=== PATIENT | male | born 1950 ===

== ENCOUNTER 2018-01-21 11:33 | Inpatient (IN) ==
[2018-01-21] MEDS ORDERED: Lidocaine 1%/Epinephrine 1:100,000 Inj 30 ML Vial ONE (11:45)
[2018-01-21] MEDS ORDERED: fentaNYL Citrate Inj 100 MCG/2 ML Ampul ONE (11:45)
[2018-01-21 11:58] LABS: Baso # (Auto) 0.1 th/mm3 (0.0-0.2); Baso % (Auto) 0.9 % (0.0-2.0); Eos # (Auto) 0.3 th/mm3 (0.0-0.4); Eos % (Auto) 1.6 % (0.0-4.0); Hematocrit 38.7 % (39.0-51.0); Lymph # (Auto) 3.3 th/mm3 (1.0-4.8); Lymph % (Auto) 21.1 % (9.0-44.0); Mean Corpuscular HGB Conc 33.5 % (32.0-36.0); Mean Corpuscular Hemoglobin 32.1 pg (27.0-34.0); Mean Corpuscular Volume 95.9 fL (80.0-100.0); Mono # (Auto) 1.4 th/mm3 (0.0-0.9); Mono % (Auto) 8.7 % (0.0-8.0); Neut # (Auto) 10.5 th/mm3 (1.8-7.7); Neut % (Auto) 67.7 % (16.0-70.0); Platelet Count 223 th/mm3 (150-450); Red Blood Count 4.03 mil/mm3 (4.50-5.90); Red Cell Distribution Width 13.4 % (11.6-17.2); White Blood Count 15.6 th/mm3 (4.0-11.0)
[2018-01-21] MEDS ORDERED: Post-op Orders (for Pharmacy) OTHER ONE (12:06)
[2018-01-21] MEDS ORDERED: Naloxone Inj 0.4 MG/ML Vial IV.PUSH PRN (12:06)
[2018-01-21 12:08] LABS: Activated Partial Thrombo Time 22.9 sec (24.3-30.1); INR 1.1 Ratio; Prothrombin Time 11.2 sec (9.8-11.6)
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
[2018-01-21] MEDS ORDERED: Midazolam Inj 5 MG/ML 1 ML Vial ONE (12:31)
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
--- NOTE | 2018-01-21 12:34 | CT ---
EXAM DATE: 01/21/2018 12:24 PM EDT AGE/SEX: 89 years / Male INDICATIONS: [place] [facility] [place]IN[place] DATA: This is the patient's initial encounter. Patient reports that signs and symptoms have been present for 1 day and indicates a pain score of Nonresponsive. MEDICAL/SURGICAL HISTORY: Non-responsive. Non-responsive. RADIATION DOSE: 17.63 CTDI (mGy) COMPARISON: No prior exams available for comparison. TECHNIQUE: Multiple contiguous axial images were obtained through the chest during bolus infusion of 97 ml Omnipaque 350 (iohexol) nonionic water-soluble contrast as a single exam dose. Images were obtained in suspended respiration using multiple row detector helical technique. Using automated exp osure control and adjustment of the mA and/or kV according to patient size, radiation dose was kept a s low as reasonably achievable to obtain optimal diagnostic quality images. DICOM format image data is available electronically for review and comparison. FINDINGS: Moderate right hemopneumothorax despite thoracostomy tube placement. Patchy parenchymal lung contusio n on the right with areas of central air cyst formation. Left lung is satisfactorily aerated and rubia sly intact. No evidence of great vessel injury or mediastinal hematoma. Multiple moderately displaced right-sided rib fractures. Extensive right chest neck and upper abdomen subcutaneous emphysema. CONCLUSION: 1. Moderate persistent hemopneumothorax on the right despite thoracostomy tube placement.. 2. Patchy right lung parenchymal contusion. Electronically signed by: Uriah Wynn MD 01/21/2018 12:32 PM EDT
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
[2018-01-21] MEDS ORDERED: HYDROmorphone PF Inj 1 MG/ML Ampul IV.PUSH PRN (13:00)
[2018-01-21] MEDS: Midazolam 50 MG/50 ML Inj 50 MG/50 ML BAG IV.CONT PRN ×2 (13:30→18:11)
[2018-01-21 13:42] LABS: ABG PCO2 37 mmHg (38-42); ABG PO2 124 mmHg (61-120)
[2018-01-21] MEDS: Sod Chloride 0.9% Inj 1,000 ML IV.CONT SCH (14:15)
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
[2018-01-21] MEDS: Pantoprazole Inj 40 MG Vial IV.PUSH SCH (16:25)
[2018-01-21] MEDS: fentaNYL 10 mcg/mL Premix Drip 2,500 MCG/250 ML BAG IV.SIG PRN (16:27)
[2018-01-21] MEDS: ceFAZolin Inj 1,000 MG in Sodium Chlor 0.9% Inj 100 ML IV.SIG SCH ×2 (17:09→21:22)
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
[2018-01-21 17:53] LABS: Hematocrit 33.9 % (39.0-51.0); Hemoglobin 11.8 gm/dL (13.0-17.0); Mean Corpuscular HGB Conc 34.6 % (32.0-36.0); Mean Corpuscular Hemoglobin 32.1 pg (27.0-34.0); Mean Corpuscular Volume 92.6 fL (80.0-100.0); Mean Platelet Volume 8.5 fL (7.0-11.0); Platelet Count 144 th/mm3 (150-450); Red Blood Count 3.67 mil/mm3 (4.50-5.90); Red Cell Distribution Width 13.9 % (11.6-17.2); White Blood Count 18.9 th/mm3 (4.0-11.0)
--- NOTE | 2018-01-21 18:30 | MP ---
cc: Shivani Sommers MD DATE OF OPERATION: 01/21/2018 PREOPERATIVE DIAGNOSES: Right hemopneumothorax, serial rib fractures, contusion in the right chest in the right lung. POSTOPERATIVE DIAGNOSES: Right hemopneumothorax, serial rib fractures, contusion in the right chest in the right lung. PROCEDURE PERFORMED: Emergency right chest tube placement. SURGEON: Ashwini Sommers MD ANESTHESIA: 1% Xylocaine and sedation. ESTIMATED BLOOD LOSS: Minimal. DESCRIPTION OF PROCEDURE: The patient was prepped and draped in the usual fashion. The area was infiltrated with 1% Xylocaine. Incision made in the 5th and 6th rib in the midaxillary line, deepened down with a hemostat and chest entered. Immediately a large amount of old blood escaped 36-Bengali chest tube was placed in the posterior sulcus, sutured in place with 0 silk, connected to Pleur-Evac and the initially about 500 mL of old blood was obtained and then a trickle continues to about a liter over the next 4 hours. The patient tolerated the procedure well. MD IDALIA Lee/suzanne , 05:17 PM , 05:21 PM
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
[2018-01-21] MEDS: Senna/Docusate Sodium 8.6/50 MG Tablet PO SCH (21:22)
[2018-01-22] MEDS: Midazolam 50 MG/50 ML Inj 50 MG/50 ML BAG IV.CONT PRN (05:37)
[2018-01-22] MEDS: Sod Chloride 0.9% Inj 1,000 ML IV.CONT SCH ×3 (05:38→18:17)
[2018-01-22] MEDS: ceFAZolin Inj 1,000 MG in Sodium Chlor 0.9% Inj 100 ML IV.SIG SCH (05:57)
[2018-01-22 06:06] LABS: Baso % (Auto) 0.1 % (0.0-2.0); Eos % (Auto) 0.1 % (0.0-4.0); Hematocrit 33.1 % (39.0-51.0); Hemoglobin 11.4 gm/dL (13.0-17.0); Lymph # (Auto) 1.1 th/mm3 (1.0-4.8); Lymph % (Auto) 8.8 % (9.0-44.0); Mean Corpuscular HGB Conc 34.4 % (32.0-36.0); Mean Corpuscular Hemoglobin 32.1 pg (27.0-34.0); Mean Corpuscular Volume 93.6 fL (80.0-100.0); Mono # (Auto) 1.9 th/mm3 (0.0-0.9); Mono % (Auto) 15.9 % (0.0-8.0); Neut # (Auto) 9.2 th/mm3 (1.8-7.7); Neut % (Auto) 75.1 % (16.0-70.0); Platelet Count 129 th/mm3 (150-450); Red Blood Count 3.54 mil/mm3 (4.50-5.90); Red Cell Distribution Width 13.8 % (11.6-17.2); White Blood Count 12.2 th/mm3 (4.0-11.0)
[2018-01-22 06:33] LABS: Alanine Aminotransferase 35 U/L (12-78); Albumin 2.6 g/dL (3.4-5.0); Alkaline Phosphatase 43 U/L (45-117); Anion Gap 9 meq/L (5-15); Aspartate Aminotransferase 53 U/L (15-37); Blood Urea Nitrogen 23 mg/dL (7-18); Carbon Dioxide 23.3 meq/L (21.0-32.0); Chloride 112 meq/L (98-107); Glomerular Filtration Rate Greater Than 89 mL/min (>89); Glucose,Random 121 mg/dL (74-106); Potassium 3.8 meq/L (3.5-5.1); Sodium 144 meq/L (136-145); Total Protein 5.4 g/dL (6.4-8.2)
[2018-01-22 06:46] LABS: Calcium 7.2 mg/dL (8.5-10.1)
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
[2018-01-22 06:54] LABS: ABG Base Excess -2.5 mmol/L (-2-2); ABG PCO2 38 mmHg (38-42); ABG PO2 94 mmHg (61-120)
[2018-01-22] MEDS: Chlorhexidine 0.12% Oral Kit 15 ML UDC OROPHARYNG SCH ×2 (09:24→21:18)
[2018-01-22] MEDS: Methocarbamol 500 MG Tablet PO SCH ×3 (11:20→21:17)
[2018-01-22] MEDS: Senna/Docusate Sodium 8.6/50 MG Tablet PO SCH ×2 (11:34→20:52)
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
[2018-01-22 12:51] LABS: Calcium 7.4 mg/dL (8.5-10.1); Total Protein 5.3 g/dL (6.4-8.2)
[2018-01-22] MEDS ORDERED: Sod Chloride 0.9% Inj 1,000 ML IV.SIG ONE (13:18)
[2018-01-22] MEDS: Oral Hygiene Kit OROPHARYNG SCH ×2 (13:37→17:15)
[2018-01-22] MEDS: Pantoprazole Inj 40 MG Vial IV.PUSH SCH (13:43)
[2018-01-22] MEDS: Propofol 1000 mg/100 ml Inj 1,000 MG/100 ML BOTTLE IV.CONT PRN (13:45)
--- NOTE | 2018-01-22 15:05 | ECHRPT ---
Indication: SOB CONCLUSIONS The left ventricular systolic function is normal with an estimated ejection fraction in the range of 60-65%. Normal left ventricular size. Wall thickness is normal. No regional wall motion abnormalities are present. Trivial pulmonary valve regurgitation. BP: / HR: Rhythm: Sinus Technical Quality:Fair FINDINGS LEFT VENTRICLE The left ventricular systolic function is normal with an estimated ejection fraction in the range of 60-65%. Normal left ventricular size. Wall thickness is normal. No regional wall motion abnormalities are present. RIGHT VENTRICLE Normal right ventricular size and systolic function. LEFT ATRIUM The left atrial size is normal. RIGHT ATRIUM The right atrial size is normal. ATRIAL SEPTUM Normal atrial septal thickness without atrial level shunting by limited color doppler interrogation. AORTA The aortic root and proximal ascending aorta are normal in size on limited imaging. MITRAL VALVE Structurally normal mitral valve. No mitral valve stenosis or regurgitation. AORTIC VALVE Trileaflet aortic valve. No aortic valve stenosis or regurgitation. TRICUSPID VALVE Structurally normal tricuspid valve. No tricuspid valve stenosis or regurgitation. PULMONARY VALVE Trivial pulmonary valve regurgitation. VESSELS The inferior vena cava is normal in size. PERICARDIUM No pericardial effusion. Oswald Ruth MD (Electronically Signed) Final Date:22 January 2018 15:04
--- NOTE | 2018-01-22 20:11 | ECG ---
Date Performed: 01/21/2018 Time Performed: 13:34:32 PTAGE: 67 years EKG: Sinus tachycardia. Rightward axis Right bundle branch block SMALL INFERIOR Q-WAVES OF UNDET ERMINED SIGNIFICANCE Abnormal ECG NO PREVIOUS TRACING DOCTOR: Alverto Kern Interpretating Date/Time 01/22/2018 20:10:21
[2018-01-23] MEDS: Oral Hygiene Kit OROPHARYNG SCH ×4 (01:11→16:51)
[2018-01-23] MEDS: Propofol 1000 mg/100 ml Inj 1,000 MG/100 ML BOTTLE IV.CONT PRN ×4 (02:06→17:36)
[2018-01-23] MEDS: Methocarbamol 500 MG Tablet PO SCH ×4 (03:52→22:20)
[2018-01-23] MEDS: fentaNYL 10 mcg/mL Premix Drip 2,500 MCG/250 ML BAG IV.SIG PRN (03:53)
[2018-01-23] MEDS: Sod Chloride 0.9% Inj 1,000 ML IV.CONT SCH ×3 (03:54→18:30)
[2018-01-23 05:56] LABS: ABG Base Excess 0.9 mmol/L (-2-2); ABG PCO2 44 mmHg (38-42); ABG PO2 84 mmHg (61-120)
[2018-01-23 06:02] LABS: Baso % (Auto) 0.1 % (0.0-2.0); Eos # (Auto) 0.1 th/mm3 (0.0-0.4); Eos % (Auto) 0.3 % (0.0-4.0); Hematocrit 31.3 % (39.0-51.0); Hemoglobin 10.6 gm/dL (13.0-17.0); Lymph # (Auto) 1.6 th/mm3 (1.0-4.8); Lymph % (Auto) 9.9 % (9.0-44.0); Mean Corpuscular HGB Conc 33.8 % (32.0-36.0); Mean Corpuscular Hemoglobin 32.3 pg (27.0-34.0); Mean Corpuscular Volume 95.5 fL (80.0-100.0); Mean Platelet Volume 9.6 fL (7.0-11.0); Mono # (Auto) 2.3 th/mm3 (0.0-0.9); Mono % (Auto) 14.4 % (0.0-8.0); Neut % (Auto) 75.3 % (16.0-70.0); Platelet Count 116 th/mm3 (150-450); Red Blood Count 3.28 mil/mm3 (4.50-5.90); Red Cell Distribution Width 14.2 % (11.6-17.2)
[2018-01-23 06:20] LABS: Calcium 7.5 mg/dL (8.5-10.1); Carbon Dioxide 26.3 meq/L (21.0-32.0); Potassium 3.9 meq/L (3.5-5.1)
[2018-01-23] MEDS: Senna/Docusate Sodium 8.6/50 MG Tablet PO SCH ×2 (08:53→20:16)
[2018-01-23] MEDS: Chlorhexidine 0.12% Oral Kit 15 ML UDC OROPHARYNG SCH ×2 (08:53→20:14)
[2018-01-23 08:54] LABS: Lymphocytes 6 % (9-44); Monocytes 10 % (0-8)
[2018-01-23 08:55] LABS: Platelet Morphology Normal (Normal); RBC Morphology Normal (Normal)
--- NOTE | 2018-01-23 10:05 | XR ---
EXAM DATE: 01/23/2018 9:59 AM EDT AGE/SEX: 67 years / Male INDICATIONS: Rib fracture CLINICAL DATA: This is the patient's subsequent encounter. Patient reports that signs and symptoms h ave been present for 2 days and indicates a pain score of Nonresponsive. MEDICAL/SURGICAL HISTORY: Non-responsive. Non-responsive. COMPARISON: [facility] [place], CHEST 1V SINGLE AP, 01/22/2018. [facility] [place], CT CHEST W CONTRAST, 01/21/2018. . FINDINGS: 2 AP views of the chest demonstrate a normal-sized cardiac silhouette. Endotracheal tube and nasogast vance tube remain present. EKG lines overlie the patient. There is a right subclavian central line pres ent with distal tip in the SVC. Large bore right chest tube remains present and no pneumothorax is vi sualized. There are stable bibasilar pleural-parenchymal opacities, right larger than left. Right sup raclavicular and right chest wall subcutaneous emphysema remains visualized and there are multiple di splaced right rib fractures. CONCLUSION: 1. Stable chest x-ray with its stable bibasilar opacities, right greater than left. These likely rep resent pleural effusions with associated volume loss and/or airspace consolidation. 2. Right chest tube remains present without a pneumothorax visualized. 3. Multiple displaced right rib fractures remain visualized and there is stable right chest wall and supraclavicular region subcutaneous emphysema. Electronically signed by: Uriah Gale MD 01/23/2018 10:04 AM EDT
[2018-01-23] MEDS: Enoxaparin Inj 30 MG/0.3 ML Syringe SQ SCH ×2 (11:05→20:14)
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
[2018-01-23] MEDS: Pantoprazole Inj 40 MG Vial IV.PUSH SCH (12:20)
[2018-01-24] MEDS: Propofol 1000 mg/100 ml Inj 1,000 MG/100 ML BOTTLE IV.CONT PRN ×4 (01:25→21:11)
[2018-01-24] MEDS: Oral Hygiene Kit OROPHARYNG SCH ×4 (02:42→15:24)
[2018-01-24] MEDS: Sod Chloride 0.9% Inj 1,000 ML IV.CONT SCH ×2 (04:03→13:02)
[2018-01-24] MEDS: Methocarbamol 500 MG Tablet PO SCH ×4 (04:26→21:11)
[2018-01-24] MEDS: fentaNYL 10 mcg/mL Premix Drip 2,500 MCG/250 ML BAG IV.SIG PRN (05:17)
[2018-01-24 06:01] LABS: Hemoglobin 8.8 gm/dL (13.0-17.0); Mean Corpuscular Hemoglobin 32.6 pg (27.0-34.0); Mean Corpuscular Volume 95.8 fL (80.0-100.0); Mean Platelet Volume 9.6 fL (7.0-11.0); Platelet Count 99 th/mm3 (150-450); Red Blood Count 2.72 mil/mm3 (4.50-5.90); Red Cell Distribution Width 13.8 % (11.6-17.2); White Blood Count 11.4 th/mm3 (4.0-11.0)
[2018-01-24 06:20] LABS: Anion Gap 8 meq/L (5-15); Blood Urea Nitrogen 25 mg/dL (7-18); Calcium 7.7 mg/dL (8.5-10.1); Carbon Dioxide 26.7 meq/L (21.0-32.0); Chloride 110 meq/L (98-107); Glomerular Filtration Rate Greater Than 89 mL/min (>89); Glucose,Random 125 mg/dL (74-106); Potassium 3.7 meq/L (3.5-5.1); Sodium 145 meq/L (136-145)
[2018-01-24 08:19] LABS: Eosinophils 2 % (0-4); Lymphocytes 12 % (9-44); Monocytes 11 % (0-8)
[2018-01-24 08:20] LABS: Platelet Morphology Normal (Normal); RBC Morphology Normal (Normal)
[2018-01-24] MEDS: Chlorhexidine 0.12% Oral Kit 15 ML UDC OROPHARYNG SCH ×2 (08:21→20:04)
[2018-01-24] MEDS: Senna/Docusate Sodium 8.6/50 MG Tablet PO SCH ×2 (08:22→20:04)
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
[2018-01-24] MEDS: Enoxaparin Inj 40 MG/0.4 ML Syringe SQ SCH (11:41)
[2018-01-24] MEDS: Pantoprazole Inj 40 MG Vial IV.PUSH SCH (12:35)
[2018-01-24] MEDS: Enoxaparin Inj 30 MG/0.3 ML Syringe SQ SCH (12:56)
[2018-01-25] MEDS: Oral Hygiene Kit OROPHARYNG SCH ×4 (01:40→17:05)
[2018-01-25] MEDS: fentaNYL 10 mcg/mL Premix Drip 2,500 MCG/250 ML BAG IV.SIG PRN (02:23)
[2018-01-25] MEDS: Propofol 1000 mg/100 ml Inj 1,000 MG/100 ML BOTTLE IV.CONT PRN ×2 (04:01→11:05)
[2018-01-25] MEDS: Methocarbamol 500 MG Tablet PO SCH ×4 (04:27→21:45)
[2018-01-25] MEDS: Sod Chloride 0.9% Inj 1,000 ML IV.CONT SCH (04:31)
[2018-01-25 06:21] LABS: ABG Base Excess 1.5 mmol/L (-2-2); ABG PCO2 39 mmHg (38-42); ABG PO2 88 mmHg (61-120)
[2018-01-25 06:48] LABS: Baso % (Auto) 0.3 % (0.0-2.0); Eos # (Auto) 0.2 th/mm3 (0.0-0.4); Eos % (Auto) 1.5 % (0.0-4.0); Hematocrit 25.3 % (39.0-51.0); Hemoglobin 8.5 gm/dL (13.0-17.0); Lymph # (Auto) 1.7 th/mm3 (1.0-4.8); Lymph % (Auto) 14.9 % (9.0-44.0); Mean Corpuscular HGB Conc 33.7 % (32.0-36.0); Mean Corpuscular Hemoglobin 32.2 pg (27.0-34.0); Mean Corpuscular Volume 95.5 fL (80.0-100.0); Mean Platelet Volume 9.5 fL (7.0-11.0); Mono # (Auto) 1.8 th/mm3 (0.0-0.9); Mono % (Auto) 15.1 % (0.0-8.0); Neut % (Auto) 68.2 % (16.0-70.0); Platelet Count 135 th/mm3 (150-450); Red Blood Count 2.65 mil/mm3 (4.50-5.90); Red Cell Distribution Width 13.8 % (11.6-17.2); White Blood Count 11.7 th/mm3 (4.0-11.0)
[2018-01-25 07:06] LABS: Anion Gap 7 meq/L (5-15); Blood Urea Nitrogen 24 mg/dL (7-18); Calcium 7.6 mg/dL (8.5-10.1); Carbon Dioxide 27.6 meq/L (21.0-32.0); Chloride 111 meq/L (98-107); Glomerular Filtration Rate Greater Than 89 mL/min (>89); Glucose,Random 87 mg/dL (74-106); Potassium 3.6 meq/L (3.5-5.1); Sodium 146 meq/L (136-145)
[2018-01-25] MEDS: Chlorhexidine 0.12% Oral Kit 15 ML UDC OROPHARYNG SCH ×2 (08:01→21:46)
[2018-01-25] MEDS: Senna/Docusate Sodium 8.6/50 MG Tablet PO SCH ×2 (08:01→21:45)
[2018-01-25] MEDS: Enoxaparin Inj 40 MG/0.4 ML Syringe SQ SCH (09:17)
--- NOTE | 2018-01-25 10:02 | CT ---
EXAM DATE: 01/25/2018 9:49 AM EDT AGE/SEX: 67 years / Male INDICATIONS: Hemothorax. CLINICAL DATA: This is the patient's subsequent encounter. Patient reports that signs and symptoms h ave been present for 4 - 6 days and indicates a pain score of Nonresponsive. MEDICAL/SURGICAL HISTORY: Hypertension. None. RADIATION DOSE: 18.87 CTDI (mGy) COMPARISON: [facility] [place], CT CHEST W CONTRAST, 01/21/2018. . TECHNIQUE: Multiple contiguous axial images were obtained through the chest without contrast. Image s were obtained in suspended respiration using multiple row detector helical technique. Using automa maricruz exposure control and adjustment of the mA and/or kV according to patient size, radiation dose was kept as low as reasonably achievable to obtain optimal diagnostic quality images. DICOM format imag e data is available electronically for review and comparison. FINDINGS: A right chest thoracostomy tube remains in place. There is bilateral posterior basilar atelectasis an d/or contusion. Small volume of residual partly loculated effusion on the right and minimal free effu masha on the left. Endotracheal tube, nasogastric tube and right subclavian central line are present in good position. T here is no evidence of mediastinal mass or hematoma. Multiple right chest skeletal injuries are again noted. Moderate subcutaneous emphysema is present in the right lateral chest wall and the right neck. CONCLUSION: 1. Interval resolution of right pneumothorax with some residual hemothorax. 2. Posterior lung base atelectasis and/or contusion bilaterally Electronically signed by: Uriah Wynn MD 01/25/2018 10:00 AM EDT
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
[2018-01-25] MEDS: Pantoprazole Inj 40 MG Vial IV.PUSH SCH (14:25)
[2018-01-26] MEDS: Propofol 1000 mg/100 ml Inj 1,000 MG/100 ML BOTTLE IV.CONT PRN (00:06)
[2018-01-26] MEDS: Oral Hygiene Kit OROPHARYNG SCH ×2 (00:06→04:54)
[2018-01-26] MEDS: fentaNYL 10 mcg/mL Premix Drip 2,500 MCG/250 ML BAG IV.SIG PRN (00:07)
[2018-01-26] MEDS: Chlorhexidine Gluconate 2% 1 Pack (2 Cloths) TOPICAL SCH (02:00)
[2018-01-26] MEDS ORDERED: Chlorhexidine Gluconate 2% 1 Pack (2 Cloths) TOPICAL PRN (04:00)
[2018-01-26 04:28] LABS: Baso # (Auto) 0.1 th/mm3 (0.0-0.2); Baso % (Auto) 0.4 % (0.0-2.0); Eos # (Auto) 0.2 th/mm3 (0.0-0.4); Eos % (Auto) 1.6 % (0.0-4.0); Hematocrit 25.2 % (39.0-51.0); Hemoglobin 8.8 gm/dL (13.0-17.0); Lymph # (Auto) 1.8 th/mm3 (1.0-4.8); Lymph % (Auto) 14.3 % (9.0-44.0); Mean Corpuscular HGB Conc 34.9 % (32.0-36.0); Mean Corpuscular Hemoglobin 32.7 pg (27.0-34.0); Mean Corpuscular Volume 93.9 fL (80.0-100.0); Mean Platelet Volume 8.6 fL (7.0-11.0); Mono # (Auto) 2.2 th/mm3 (0.0-0.9); Mono % (Auto) 17.5 % (0.0-8.0); Neut # (Auto) 8.2 th/mm3 (1.8-7.7); Neut % (Auto) 66.2 % (16.0-70.0); Platelet Count 177 th/mm3 (150-450); Red Blood Count 2.69 mil/mm3 (4.50-5.90); Red Cell Distribution Width 13.4 % (11.6-17.2); White Blood Count 12.4 th/mm3 (4.0-11.0)
[2018-01-26 04:50] LABS: Anion Gap 5 meq/L (5-15); Blood Urea Nitrogen 24 mg/dL (7-18); Calcium 7.6 mg/dL (8.5-10.1); Carbon Dioxide 29.4 meq/L (21.0-32.0); Chloride 111 meq/L (98-107); Glomerular Filtration Rate Greater Than 89 mL/min (>89); Glucose,Random 142 mg/dL (74-106); Potassium 3.4 meq/L (3.5-5.1); Sodium 145 meq/L (136-145)
[2018-01-26] MEDS: Methocarbamol 500 MG Tablet PO SCH ×4 (04:53→21:06)
[2018-01-26] MEDS: Senna/Docusate Sodium 8.6/50 MG Tablet PO SCH ×3 (08:25→21:06)
[2018-01-26] MEDS: Chlorhexidine 0.12% Oral Kit 15 ML UDC OROPHARYNG SCH (08:25)
[2018-01-26 09:38] LABS: ABG Base Excess 3.6 mmol/L (-2-2); ABG PCO2 50 mmHg (38-42); ABG PO2 74 mmHg (61-120)
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
[2018-01-26] MEDS: Enoxaparin Inj 40 MG/0.4 ML Syringe SQ SCH (10:25)
[2018-01-26] MEDS: Morphine Inj 4 MG/ML Vial IV.PUSH PRN ×2 (12:18→18:31)
[2018-01-26] MEDS: Pantoprazole Inj 40 MG Vial IV.PUSH SCH (12:18)
[2018-01-26] MEDS ORDERED: Sod Chloride 0.9% Inj 1,000 ML IV.CONT SCH (16:06)
[2018-01-26] MEDS ORDERED: Potassium Chlor 20 mEq Premix 20 MEQ/100 ML PIGGYBACK IV.SIG SCH (17:00)
[2018-01-26] MEDS: Potassium Chlor 10 mEq Premix 10 MEQ/100 ML PIGGYBACK IV.SIG SCH ×4 (17:31→20:33)
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
[2018-01-27] MEDS: Morphine Inj 4 MG/ML Vial IV.PUSH PRN ×2 (00:30→09:37)
[2018-01-27 04:18] LABS: Baso # (Auto) 0.1 th/mm3 (0.0-0.2); Baso % (Auto) 0.5 % (0.0-2.0); Eos # (Auto) 0.2 th/mm3 (0.0-0.4); Eos % (Auto) 1.2 % (0.0-4.0); Hematocrit 27.9 % (39.0-51.0); Hemoglobin 9.6 gm/dL (13.0-17.0); Lymph # (Auto) 1.5 th/mm3 (1.0-4.8); Lymph % (Auto) 10.1 % (9.0-44.0); Mean Corpuscular HGB Conc 34.5 % (32.0-36.0); Mean Corpuscular Hemoglobin 32.5 pg (27.0-34.0); Mean Corpuscular Volume 94.1 fL (80.0-100.0); Mean Platelet Volume 8.8 fL (7.0-11.0); Mono # (Auto) 2.8 th/mm3 (0.0-0.9); Mono % (Auto) 18.9 % (0.0-8.0); Neut # (Auto) 10.3 th/mm3 (1.8-7.7); Neut % (Auto) 69.3 % (16.0-70.0); Platelet Count 216 th/mm3 (150-450); Red Blood Count 2.96 mil/mm3 (4.50-5.90); Red Cell Distribution Width 13.6 % (11.6-17.2); White Blood Count 14.9 th/mm3 (4.0-11.0)
[2018-01-27 04:37] LABS: Anion Gap 8 meq/L (5-15); Blood Urea Nitrogen 24 mg/dL (7-18); Carbon Dioxide 30.4 meq/L (21.0-32.0); Chloride 108 meq/L (98-107); Glomerular Filtration Rate Greater Than 89 mL/min (>89); Glucose,Random 102 mg/dL (74-106); Sodium 146 meq/L (136-145)
[2018-01-27] MEDS: Chlorhexidine Gluconate 2% 1 Pack (2 Cloths) TOPICAL SCH (04:40)
[2018-01-27] MEDS: Methocarbamol 500 MG Tablet PO SCH ×4 (04:40→22:11)
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
[2018-01-27 05:07] LABS: Platelet Estimate Normal (Normal); Platelet Morphology Normal (Normal); RBC Morphology Normal (Normal)
[2018-01-27] MEDS: Senna/Docusate Sodium 8.6/50 MG Tablet PO SCH ×2 (09:30→20:43)
[2018-01-27] MEDS: buPROPion 150 MG 12 HR Tablet PO SCH (09:30)
[2018-01-27] MEDS: Enoxaparin Inj 40 MG/0.4 ML Syringe SQ SCH (09:30)
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
[2018-01-28] MEDS: Chlorhexidine Gluconate 2% 1 Pack (2 Cloths) TOPICAL SCH (04:20)
[2018-01-28] MEDS: Methocarbamol 500 MG Tablet PO SCH ×4 (04:40→21:11)
--- NOTE | 2018-01-28 06:44 | XR ---
EXAM DATE: 01/28/2018 6:32 AM EDT AGE/SEX: 67 years / Male INDICATIONS: Shortness of breath. Evaluate for pneumothorax. CLINICAL DATA: This is the patient's subsequent encounter. Patient reports that signs and symptoms h ave been present for 1 week and indicates a pain score of 0/10. MEDICAL/SURGICAL HISTORY: Hypertension. None. [place] [facility] [place]. . FINDINGS: Multiple right-sided rib fractures. Right thoracostomy tube is unchanged in position. No pneumothorax . Bibasilar airspace disease with associated effusions, right greater than left. Heart size is normal . Bridging lateral osteophytes at multiple dorsal levels. There appear to be spurs on both humeral he ads CONCLUSION: 1. Extensive right-sided rib fractures. 2. Stable position of right thoracostomy tube. No pneumothorax. 3. Bibasilar airspace disease with probable associated effusions, right greater than left. 4. No significant change from prior. Electronically signed by: Mike Brand MD 01/28/2018 6:43 AM EDT
[2018-01-28] MEDS ORDERED: Bisacodyl 10 MG Supp RECTAL ONE (09:00)
[2018-01-28 09:22] LABS: ABG Base Excess 8.5 mmol/L (-2-2); ABG PCO2 50 mmHg (38-42); ABG PO2 70 mmHg (61-120)
[2018-01-28] MEDS: Enoxaparin Inj 40 MG/0.4 ML Syringe SQ SCH (10:04)
[2018-01-28] MEDS: buPROPion 150 MG 12 HR Tablet PO SCH (10:09)
[2018-01-28] MEDS: Senna/Docusate Sodium 8.6/50 MG Tablet PO SCH ×2 (10:09→20:17)
[2018-01-28] MEDS: Sod Chloride 0.9% Inj 1,000 ML IV.SIG SCH ×2 (18:00→19:05)
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
[2018-01-29] MEDS: Methocarbamol 500 MG Tablet PO SCH ×4 (03:22→21:40)
[2018-01-29] MEDS: Chlorhexidine Gluconate 2% 1 Pack (2 Cloths) TOPICAL SCH (03:23)
[2018-01-29 05:45] LABS: Anion Gap 6 meq/L (5-15); Blood Urea Nitrogen 24 mg/dL (7-18); Calcium 8.3 mg/dL (8.5-10.1); Carbon Dioxide 32.4 meq/L (21.0-32.0); Chloride 109 meq/L (98-107); Glomerular Filtration Rate Greater Than 89 mL/min (>89); Glucose,Random 106 mg/dL (74-106); Potassium 3.9 meq/L (3.5-5.1); Sodium 147 meq/L (136-145)
[2018-01-29 06:00] LABS: Baso # (Auto) 0.1 th/mm3 (0.0-0.2); Baso % (Auto) 0.6 % (0.0-2.0); Eos # (Auto) 0.1 th/mm3 (0.0-0.4); Eos % (Auto) 0.9 % (0.0-4.0); Hematocrit 29.1 % (39.0-51.0); Hemoglobin 9.8 gm/dL (13.0-17.0); Mean Corpuscular HGB Conc 33.6 % (32.0-36.0); Mean Corpuscular Hemoglobin 32.6 pg (27.0-34.0); Mean Corpuscular Volume 97.2 fL (80.0-100.0); Mean Platelet Volume 8.6 fL (7.0-11.0); Mono # (Auto) 2.1 th/mm3 (0.0-0.9); Mono % (Auto) 12.3 % (0.0-8.0); Neut # (Auto) 12.6 th/mm3 (1.8-7.7); Neut % (Auto) 74.2 % (16.0-70.0); Platelet Count 288 th/mm3 (150-450)
[2018-01-29] MEDS: Senna/Docusate Sodium 8.6/50 MG Tablet PO SCH ×2 (08:27→21:40)
[2018-01-29] MEDS: buPROPion 150 MG 12 HR Tablet PO SCH (08:27)
[2018-01-29] MEDS: Sod Chloride 0.9% Inj 1,000 ML IV.SIG SCH ×2 (09:27→20:07)
[2018-01-29] MEDS: Enoxaparin Inj 40 MG/0.4 ML Syringe SQ SCH (11:14)
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
[2018-01-29 19:03] LABS: ABG Base Excess 9.4 mmol/L (-2-2); ABG PCO2 56 mmHg (38-42); ABG PO2 88 mmHg (61-120)
[2018-01-30] MEDS: Methocarbamol 500 MG Tablet PO SCH ×4 (04:19→21:37)
[2018-01-30] MEDS: Sod Chloride 0.9% Inj 1,000 ML IV.SIG SCH ×3 (04:20→21:38)
[2018-01-30] MEDS: Chlorhexidine Gluconate 2% 1 Pack (2 Cloths) TOPICAL SCH (04:20)
[2018-01-30] MEDS: Enoxaparin Inj 40 MG/0.4 ML Syringe SQ SCH (09:32)
[2018-01-30] MEDS: Senna/Docusate Sodium 8.6/50 MG Tablet PO SCH ×2 (09:32→21:37)
[2018-01-30] MEDS: buPROPion 150 MG 12 HR Tablet PO SCH (09:32)
[2018-01-30 10:35] LABS: Baso # (Auto) 0.1 th/mm3 (0.0-0.2); Baso % (Auto) 0.4 % (0.0-2.0); Eos # (Auto) 0.1 th/mm3 (0.0-0.4); Eos % (Auto) 0.7 % (0.0-4.0); Hematocrit 29.7 % (39.0-51.0); Hemoglobin 9.8 gm/dL (13.0-17.0); Lymph # (Auto) 1.8 th/mm3 (1.0-4.8); Lymph % (Auto) 9.3 % (9.0-44.0); Mean Corpuscular HGB Conc 32.9 % (32.0-36.0); Mean Corpuscular Hemoglobin 32.3 pg (27.0-34.0); Mean Platelet Volume 8.1 fL (7.0-11.0); Mono # (Auto) 1.9 th/mm3 (0.0-0.9); Mono % (Auto) 9.8 % (0.0-8.0); Neut # (Auto) 15.1 th/mm3 (1.8-7.7); Neut % (Auto) 79.8 % (16.0-70.0); Platelet Count 350 th/mm3 (150-450); Red Blood Count 3.03 mil/mm3 (4.50-5.90); Red Cell Distribution Width 14.3 % (11.6-17.2); White Blood Count 18.9 th/mm3 (4.0-11.0)
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
[2018-01-30 11:04] LABS: Anion Gap 5 meq/L (5-15); Blood Urea Nitrogen 23 mg/dL (7-18); Calcium 8.1 mg/dL (8.5-10.1); Carbon Dioxide 36.7 meq/L (21.0-32.0); Chloride 108 meq/L (98-107); Glomerular Filtration Rate Greater Than 89 mL/min (>89); Glucose,Random 93 mg/dL (74-106); Potassium 3.7 meq/L (3.5-5.1); Sodium 150 meq/L (136-145)
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
[2018-01-31] MEDS: Methocarbamol 500 MG Tablet PO SCH ×4 (03:44→22:07)
[2018-01-31 04:35] LABS: Baso # (Auto) 0.1 th/mm3 (0.0-0.2); Baso % (Auto) 0.5 % (0.0-2.0); Eos # (Auto) 0.3 th/mm3 (0.0-0.4); Eos % (Auto) 1.3 % (0.0-4.0); Hematocrit 29.4 % (39.0-51.0); Hemoglobin 9.7 gm/dL (13.0-17.0); Lymph # (Auto) 1.5 th/mm3 (1.0-4.8); Lymph % (Auto) 7.7 % (9.0-44.0); Mean Corpuscular HGB Conc 33.1 % (32.0-36.0); Mean Corpuscular Hemoglobin 32.2 pg (27.0-34.0); Mean Corpuscular Volume 97.3 fL (80.0-100.0); Mean Platelet Volume 8.2 fL (7.0-11.0); Mono % (Auto) 10.5 % (0.0-8.0); Neut # (Auto) 15.1 th/mm3 (1.8-7.7); Platelet Count 366 th/mm3 (150-450); Red Blood Count 3.02 mil/mm3 (4.50-5.90); Red Cell Distribution Width 14.1 % (11.6-17.2); White Blood Count 18.9 th/mm3 (4.0-11.0)
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
[2018-01-31 05:01] LABS: Albumin 1.9 g/dL (3.4-5.0); Anion Gap 6 meq/L (5-15); Aspartate Aminotransferase 35 U/L (15-37); Blood Urea Nitrogen 23 mg/dL (7-18); Calcium 7.9 mg/dL (8.5-10.1); Carbon Dioxide 36.2 meq/L (21.0-32.0); Chloride 105 meq/L (98-107); Glomerular Filtration Rate Greater Than 89 mL/min (>89); Glucose,Random 115 mg/dL (74-106); Potassium 3.4 meq/L (3.5-5.1); Sodium 147 meq/L (136-145)
[2018-01-31 05:05] LABS: Alanine Aminotransferase 33 U/L (12-78); Alkaline Phosphatase 95 U/L (45-117)
[2018-01-31] MEDS: Sod Chloride 0.9% Inj 1,000 ML IV.SIG SCH ×3 (06:20→18:16)
[2018-01-31 06:33] LABS: ABG Base Excess 11.7 mmol/L (-2-2); ABG PCO2 60 mmHg (38-42); ABG PO2 71 mmHg (61-120)
[2018-01-31] MEDS: buPROPion 150 MG 12 HR Tablet PO SCH (08:28)
[2018-01-31] MEDS: Senna/Docusate Sodium 8.6/50 MG Tablet PO SCH ×2 (08:28→21:45)
[2018-01-31] MEDS: Enoxaparin Inj 40 MG/0.4 ML Syringe SQ SCH (09:07)
[2018-01-31] MEDS ORDERED: Potassium Chlor 40 mEq Premix 40 MEQ/100 ML PIGGYBACK IV.SIG PRN ×2 (09:24)
[2018-01-31] MEDS ORDERED: Potassium Phosphate Inj 30 MMOL in Sodium Chlor 0.9% Inj 250 ML IV.SIG PRN (09:24)
[2018-01-31] MEDS ORDERED: Potassium Chloride 25 MEQ Effervescent Tablet PO PRN (09:24)
[2018-01-31] MEDS ORDERED: Magnesium Oxide 400 MG Tablet PO PRN (09:24)
[2018-01-31] MEDS ORDERED: Potassium Chlor 20 mEq Premix 20 MEQ/100 ML PIGGYBACK IV.SIG PRN ×2 (09:24)
[2018-01-31] MEDS ORDERED: Magnesium Sulfate Inj 2 GM in Sodium Chlor 0.9% Inj 96 ML IV.SIG PRN (09:24)
[2018-01-31] MEDS ORDERED: Sodium Phosphate Inj 30 MMOL in Sodium Chlor 0.9% Inj 250 ML IV.SIG PRN (09:24)
[2018-01-31] MEDS ORDERED: Magnesium Sulfate Inj 4 GM in Sodium Chlor 0.9% Inj 92 ML IV.SIG PRN (09:24)
[2018-01-31] MEDS ORDERED: Potassium Phosphate 500 MG Soluble Tablet PO PRN ×2 (09:24)
[2018-01-31] MEDS ORDERED: Lidocaine PF 1% Inj 5 ML Syringe INFILTRATN ONE (10:59)
[2018-01-31] MEDS ORDERED: Succinylcholine Inj 100 MG/5 ML Syringe IV.PUSH ONE (10:59)
[2018-01-31] MEDS ORDERED: fentaNYL Citrate Inj 100 MCG/2 ML Ampul ONE (11:33)
--- NOTE | 2018-01-31 12:18 | P.DIET ---
Nutritional Evaluation Type of nutrition evaluation: follow-up Nutrition consult regarding: Tube Feeding Objective - Diagnosis Trauma Alert - Objective % IBW: 136 (XYQ=402#) Body Weight Used for Calculations: IBW (178#/80.9 kg) Energy Needs - Lower Range (kCal/kg): 25 Energy Needs - Upper Range (kCal/kg): 30 Lower Limit kCal/kg (kCals): 2,023 Upper Limit kCal/kg (kCals): 2,428 Lower Limit Protein Factor (Grams per Kg): 1.0 Upper Limit Protein Factor (Grams per Kg): 1.5 Lower Protein Needs (Protein): 81 Upper Protein Needs (Protein): 122 Dietitian Reviewed in Medical Record: Current diet, Curent medications, Intake & Output, Labs, Medical history, Tube feeding Diet Order: NPO (for procedure) Assessment Assessment: Pt was extubated 01/26 and diet was advanced per ST recommendations. Adequate po intake has not yet been established. He is currently npo for bronchoscopy. RD will monitor diet advance and assess for the need of supplements. Labs, wts and clinical course reviewed. CBW 110.1 kg. Recommendations: Advance diet per ST when able RD following Dietitian to Monitor: Lab values, Intake & Output, Weight change, PO Intake, Diet advancement, Swallow recommendations, Medical course
--- NOTE | 2018-01-31 12:37 | XR ---
EXAM DATE: 01/31/2018 12:18 PM EDT AGE/SEX: 67 years / Male INDICATIONS: Post Bronchoscopy. Short of breath CLINICAL DATA: This is the patient's initial encounter. Patient reports that signs and symptoms have been present for 1 day and indicates a pain score of 0/10. MEDICAL/SURGICAL HISTORY: Hypertension. None. COMPARISON: [facility] – [place], CHEST 1V SINGLE AP, 01/31/2018. . FINDINGS: Upright expiratory frontal view of the chest demonstrates a normal size cardiac silhouette. EKG lines overlie the patient. Large bore chest tube overlies the right mid hemithorax. There is a small right apical pneumothorax with pleural line seen superiorly in the right hemithorax. There are no signs of tension. Stable moderate size right and small left basilar pleural-parenchymal opacity remains prese nt. There are multiple displaced right rib fractures. CONCLUSION: 1. Small right apical pneumothorax is present in this patient with right chest tube in place. 2. Stable bibasilar pleural-parenchymal opacities, right greater than left. These likely represent s mall pleural effusions with associated volume loss and/or airspace consolidation. 3. Stable appearance of the right rib fractures. Electronically signed by: Uriah Gale MD 01/31/2018 12:35 PM EDT
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
[2018-02-01] MEDS: Methocarbamol 500 MG Tablet PO SCH ×3 (03:46→15:51)
[2018-02-01 04:17] LABS: Baso % (Auto) 0.1 % (0.0-2.0); Eos # (Auto) 0.2 th/mm3 (0.0-0.4); Eos % (Auto) 0.6 % (0.0-4.0); Hematocrit 29.3 % (39.0-51.0); Hemoglobin 9.8 gm/dL (13.0-17.0); Lymph # (Auto) 1.7 th/mm3 (1.0-4.8); Lymph % (Auto) 6.3 % (9.0-44.0); Mean Corpuscular HGB Conc 33.4 % (32.0-36.0); Mean Corpuscular Hemoglobin 32.2 pg (27.0-34.0); Mean Corpuscular Volume 96.4 fL (80.0-100.0); Mean Platelet Volume 8.2 fL (7.0-11.0); Mono # (Auto) 2.8 th/mm3 (0.0-0.9); Mono % (Auto) 10.2 % (0.0-8.0); Neut # (Auto) 22.9 th/mm3 (1.8-7.7); Neut % (Auto) 82.8 % (16.0-70.0); Platelet Count 376 th/mm3 (150-450); Red Blood Count 3.04 mil/mm3 (4.50-5.90); Red Cell Distribution Width 13.9 % (11.6-17.2); White Blood Count 27.6 th/mm3 (4.0-11.0)
--- NOTE | 2018-02-01 04:19 | XR ---
EXAM DATE: 02/01/2018 4:09 AM EDT AGE/SEX: 67 years / Male INDICATIONS: Trauma. CLINICAL DATA: This is the patient's subsequent encounter. Patient reports that signs and symptoms h ave been present for 2 days and indicates a pain score of Nonresponsive. MEDICAL/SURGICAL HISTORY: Hypertension. None. COMPARISON: [facility] [place], CHEST 1V SINGLE AP, 01/31/2018. [facility] [place], CHEST 1V SINGLE AP, 01/31/2018. . FINDINGS: Right rib fractures with a small to moderate effusion and basilar consolidation again noted, not sign ificantly changed. Right chest tube remains in place. No pneumothorax. Mild left base consolidation and small effusion not significantly changed. Heart size stable, within normal limits. CONCLUSION: 1. Bibasilar consolidation and small effusions persist, not significantly changed. 2. Right chest tube remains in place. No pneumothorax. 3. Right rib fractures are again noted. Electronically signed by: Uriah Manzanares MD 02/01/2018 4:18 AM EDT
[2018-02-01 04:46] LABS: Albumin 1.8 g/dL (3.4-5.0); Anion Gap 7 meq/L (5-15); Aspartate Aminotransferase 24 U/L (15-37); Blood Urea Nitrogen 18 mg/dL (7-18); Calcium 7.8 mg/dL (8.5-10.1); Carbon Dioxide 35.4 meq/L (21.0-32.0); Chloride 105 meq/L (98-107); Glomerular Filtration Rate Greater Than 89 mL/min (>89); Glucose,Random 112 mg/dL (74-106); Potassium 3.8 meq/L (3.5-5.1); Sodium 147 meq/L (136-145)
[2018-02-01 04:48] LABS: Alanine Aminotransferase 31 U/L (12-78)
[2018-02-01 04:50] LABS: Alkaline Phosphatase 85 U/L (45-117); Total Protein 6.2 g/dL (6.4-8.2)
[2018-02-01 05:34] LABS: Platelet Estimate Normal (Normal); Platelet Morphology Normal (Normal)
[2018-02-01] MEDS: Sod Chloride 0.9% Inj 1,000 ML IV.SIG SCH (05:52)
[2018-02-01] MEDS ORDERED: Vancomycin Consult Pharmacy 1 EACH OTHER SCH (09:30)
[2018-02-01] MEDS: buPROPion 150 MG 12 HR Tablet PO SCH (09:53)
[2018-02-01] MEDS: Senna/Docusate Sodium 8.6/50 MG Tablet PO SCH (09:53)
[2018-02-01] MEDS ORDERED: Vancomycin Inj 1,000 MG in Sodium Chlor 0.9% Inj 250 ML IV.SIG SCH (10:00)
[2018-02-01] MEDS: Enoxaparin Inj 40 MG/0.4 ML Syringe SQ SCH (10:07)
[2018-02-01] MEDS: Piperacil/Tazo 3.375 GM Premix 50 ML IV.SIG SCH ×2 (10:44→15:51)
[2018-02-01] MEDS ORDERED: Vancomycin Inj 2,000 MG in Sodium Chlor 0.9% Inj 500 ML IV.SIG ONE (11:00)
--- NOTE | 2018-02-01 15:53 | P.PNCC ---
Subjective Brief History: 67-year-old male ALF severe blunt chest trauma with hemopneumothorax- hemorrhagic shock 24 Hour Review/Hospital Course: 01/22 She required 4 units of RBC, 2 units of FFP for resuscitation blood pressure to normal level Chest tube put out 1600/cc-most of the output is initial-his output has been 150 cc overnight He is hemodynamically normal in the morning he is sedated with propofol and fentanyl Vent settings are 40% FiO2 and 5 of PEEP-saturations are satisfactory level Chest x-ray shows minimal pleural effusion Urine output is within normal limits 01/23 Patient is doing well Chest tube output 700 cc the last 24 hours Chest x-ray only small hemothorax, chest tube output is clearing up pF ratio more than 200 Output is adequate patient is hemodynamically normal tolerated the switch to propofol He has been started on tube feeds and is tolerating them well 01/24/2018 Patient remains sedated on propofol however with somewhat decrease in the arterial blood pressure so we will switch patient to Versed. Response to verbal stimuli follows very simple commands Hemodynamically patient is relatively stable however as noted above seems to be dropping pressure with propofol Once switched to Versed, will decide which way to go with the patient needs some additional fluids or other measures Bilateral breath sounds Improved aeration of both lungs and improved PO2 FiO2 gradient due to VQ mismatch reduction and improvement in the right lung Chest tube drainage about 230 cc over 24 hours serosanguineous material Abdomen soft Plan CT scan of the chest today to assess for any residual hemothorax on the right side Modified sedation We will gradually wean patient down and see how he does in next few days as far as extubation is concerned 01/25/2018 Patient is improving every day slightly Sedated on propofol and fentanyl and due to good PO2 FiO2 gradient will start weaning Propofol on hold fentanyl small dose continued Hemodynamically stable Repeat CT of the chest reveals bilateral basilar atelectasis however patient does not have significant hemothorax that would require any further drainage and this is going to resolve on its own Bilateral breath sounds on AC mode ventilation with improving PO2 FiO2 gradient We will start placing patient on CPAP trials Gentle diuresis Patient will be weaned as tolerated and he should probably come off the ventilator by Wednesday or Wednesday depending on recovery of neurologic cognitive function as well as right chest respiratory dynamics There is a small chance patient might need a tracheostomy but I do not think he will 01/26/2018 Patient neurologically improved since yesterday With removal of propofol and decreasing fentanyl patient is fully awake and alert Following commands oriented in time and space trying to write Hemodynamically stable Bilateral breath sounds good inspiratory effort no air leak in the chest tube and drainage is serosanguineous and significantly decreased We will place chest tube on waterseal Patient passed CPAP trials and will be extubated this morning Out of bed Will start on a diet after bedside swallow 01/27/2018 Patient doing very well at this time successfully extubated yesterday Awake alert and oriented following commands neurologically intact although weak Nucla Coma Scale 15 Hemodynamically stable Bilateral breath sounds decreased over the both lung marquez bases but patient taking good breaths and coughing up Chest the drain is still around 300 cc over 24 hours of serosanguineous material and this is consistent with inflammation of the right chest both visceral and parietal pleura so will leave the chest tube in for another day Past swallow test today and will be started on mechanical diet and switched to p.o. medications Transfer to floor and as soon as available rehab 01/28/2018 Patient was doing very well in the floor yesterday but then apparently desaturated this morning slightly and ABGs reveal slight hypercapnia. Based on the judgment of the [facility] trauma surgeon patient was transferred back to ICU for some closer observation and care Patient is awake alert and oriented somewhat somnolent at times Hemodynamically stable Bilateral breath sounds decreased over the both bases right more than left consistent with the consolidation of the right lower lobe I do not see any increase in fluid however patient clearly is still draining about 300 cc per 24 hours of serosanguineous fluid from the chest tube which is consistent with inflammation of the parietal and visceral pleura No air leak We will keep patient in ICU for a day or 2 work with him aggressively and respiratory parameters and see how he does 01/29/2018 Neurologic patient is fully intact Taken back to the ICU from the floor because of the questionable difficulty breathing Bilateral breath sounds some rhonchi over the right lung field consistent with a previous pulmonary injury however patient is taking deep breaths and saturating well Improving PO2 FiO2 gradient with aggressive respiratory therapy Repeat CT scan of the chest tomorrow to see if patient has large and loculated pleural effusion or perhaps a posterior hemothorax. At least he will have fairly significant bibasilar infiltrates and I may take patient to the [facility] lab for bronchoscopy and washout In the worse case scenario patient will need a thoracoscopy should he have an loculated posterior hemothorax Abdomen is soft patient is tolerating diet well 01/30/2018 Patient is awake and alert and finally had one night of sleep Hemodynamically stable Bilateral breath sounds very decreased over the both lung bases with some rhonchi and dull on percussion Chest tube drainage about 300 cc of serous fluid over last 24 hours which is clearly inflammatory as a result of trauma Respiratory patient had deteriorated over the last few days and was retaining CO2 with poor PO2 FiO2 gradient Placed on BiPAP mask yesterday afternoon, on which she is doing much better Saturation 99% We will try a nasal cannula and diet today CT of the chest reveals very little fluid however patient does have complete consolidation of the right lower lobe and this is combination of severe lung trauma, combined with inspissated secretions and inability to expand this area Will take patient tomorrow to bronchoscopy lab to clean out the respiratory tree 01/31/2018 Patient awake alert and oriented Consolidation of the right lung superimposed on underlying injury is causing significant VQ mismatch and hypoxia in face of underlying COPD and a long smoking history. Altogether patient is desaturating very easily Hypercapnic and hypoxic with poor PO2 FiO2 gradient. Underwent successful bronchoscopy today with evacuation of massive amounts of secretions from the right lung We will place on high flow oxygen at this time and see how patient does then gradually wean down 02/01/2018 Patient is awake alert and oriented Hemodynamically stable Had successful bronchoscopy yesterday with evacuation of large amounts of secretions from the right mainstem and the operations of the right lower and middle lobe Bilateral good breath sounds decreased over the right lung base consistent with the previous contusion and some atelectasis that remains White count 27,000 today which is certainly spike from yesterday which could be due to the bronchoscopy and stirring up of everything patient was placed on IV antibiotics including Vanco and Zosyn and infectious disease was consulted PO2 FiO2 gradient is definitely improved at this time patient is now nasal cannula doing fairly well Abdomen soft active bowel sounds diet tolerated Objective Vital Signs / I&O: Vital Signs 01/31/18 16:00 01/31/18 18:00 01/31/18 19:55 Temperature 98.3 F Pulse Rate 84 85 Respiratory Rate 19 Blood Pressure 142/67 H Pulse Oximetry 94 L 95 01/31/18 20:00 01/31/18 22:00 02/01/18 00:00 Temperature 99.4 F 98.8 F Pulse Rate 98 H 100 H 94 H Respiratory Rate 24 20 Blood Pressure 162/81 H 159/77 H Pulse Oximetry 93 L 99 02/01/18 02:00 02/01/18 03:46 02/01/18 04:00 Temperature 98.8 F Pulse Rate 92 H 94 H Respiratory Rate 22 28 H Blood Pressure 163/77 H Pulse Oximetry 96 02/01/18 05:45 02/01/18 06:00 02/01/18 07:00 Temperature Pulse Rate 84 96 H Respiratory Rate 28 H Blood Pressure 147/78 H Pulse Oximetry 98 91 L 02/01/18 08:00 02/01/18 08:24 02/01/18 08:32 Temperature 98.5 F Pulse Rate 84 70 Respiratory Rate 30 H 24 19 Blood Pressure 129/60 Pulse Oximetry 94 L 02/01/18 09:00 02/01/18 09:58 02/01/18 10:00 Temperature 98.5 F Pulse Rate 108 H 86 Respiratory Rate 24 26 H Blood Pressure 129/58 L 132/69 Pulse Oximetry 93 L 96 94 L 02/01/18 11:00 02/01/18 12:00 02/01/18 12:30 Temperature 99.2 F Pulse Rate 82 88 Respiratory Rate 28 H 24 26 H Blood Pressure 149/70 H 150/73 H Pulse Oximetry 94 L 94 L 02/01/18 14:37 Temperature Pulse Rate 84 Respiratory Rate 24 Blood Pressure Pulse Oximetry Intake & Output 01/31/18 02/01/18 02/01/18 18:59 06:59 18:59 Intake Total 480 / 480 1590 / 1590 Output Total 850 / 850 520 / 520 Balance -370 / -370 -520 / -520 1590 / 1590 Weight 111.2 kg Intake: IV 1590 / 1590 Zosyn 3.375 GM Premix 50 ML @ 50 / 50 100 mls/hr IV.SIG Q6H ÁNGELA Rx#: [id number] NS Inj 1,000 ML @ 30 mls/hr IV. 1000 / 1000 SIG .Q24H ÁNGELA Rx#:[id number] Vancomycin Inj 2,000 MG In NS 540 / 540 Inj 500 ML @ 250 mls/hr IV.SIG ONCE ONE Rx#:[id number] Oral 480 / 480 Output: Urine 300 / 300 Urine Amount (Catheter) 750 / 750 200 / 200 Condom 750 / 750 200 / 200 Chest Tube Drainage 100 / 100 20 / 20 Right 100 / 100 20 / 20 Other: # Incontinent Voids 3 2 Date of Last Bowel Movement 01/31/18 01/31/18 01/31/18 # Bowel Movements 1 Result Diagrams: 02/01/18 03:22 02/01/18 03:22 Imaging: Impressions Chest X-Ray 02/01/18 06:00 CONCLUSION: 1. Bibasilar consolidation and small effusions persist, not significantly changed. 2. Right chest tube remains in place. No pneumothorax. 3. Right rib fractures are again noted. Disinhibition Score: 14.00 Aggression Score: 14.00 Lability Score: 14.00 Agitated Behavior Total Score: 14 - Exam AUTO DAMAGE APPRAISER: Patient is awake alert and oriented Hemodynamic/Cardiac: Hemodynamically stable Pulmonary/Respiratory: Had successful bronchoscopy yesterday with evacuation of large amounts of secretions from the right mainstem and the operations of the right lower and middle lobe Bilateral good breath sounds decreased over the right lung base consistent with the previous contusion and some atelectasis that remains White count 27,000 today which is certainly spike from yesterday which could be due to the bronchoscopy and stirring up of everything patient was placed on IV antibiotics including Vanco and Zosyn and infectious disease was consulted PO2 FiO2 gradient is definitely improved at this time patient is now nasal cannula doing fairly well Abdomen/GI Nutrition: Abdomen soft active bowel sounds diet tolerated Renal/I&O: Renal function preserved and normal Assessment and Plan Plan: monitor patient's chest tube output and CBC closely tube feeds DVT prophylaxis started today Chest x-ray tomorrow pain control and sedation CT of the chest early on Wednesday to exclude the residual chayito Attestation: Critical care time 32 minutes
--- NOTE | 2018-02-01 18:31 | P.CONID ---
History of Present Illness Service: ID Consult date: 02/01/18 Requesting Physician: Shivani Sommers Reason for Consult: pneumonia Primary Care Provider: No Primary Care Physician History of Present Illness: 67 yo male sp blunnt chest trauma with severe b/l pulmonary contusions 10 days ago sp R CT placement on admsision, he was on vent , but extubated 6 days ago large amount of p very purulent sputum pt sp therapeutic BAL yday and his oxigenation improved. thick secretions were encounted Growing GNB from BAL On vanco, zosyn Pt has constant cough with foul smaelling purulent sputum He is afebrile but his WBC is 27 K Unknown past medical, social and family history Review of Systems other (poor historian) [facility] - History History Provided By: Patient (Unable to obtain) - Tobacco History Second Hand Smoke Exposure: Yes Tobacco Use In Past 30 Days: Yes Smoking Status: Current every day smoker Tobacco Type: Cigars - Alcohol History How Often Do You Have a Drink Containing Alcohol: Monthly or less - Substance Use History Substance History: No History of Abuse - Immunization History Tetanus Immunization: <5 Years Hx Influenza Vaccine This Season: No Medications and Allergies Active Medications: Active Medications Al Hydroxide/Mg Hydroxide (Milk Of Sasha Liq) 30 ml PO Q12H PRN PRN Reason: Mild Constipation Albuterol (Duoneb Neb (Prn)) 1 ampul NEB Q2HR NEB PRN PRN Reason: SHORTNESS OF BREATH/WHEEZING Last Admin: 02/01/18 14:35 Dose: 1 ampul Albuterol (Duoneb Neb (Jose J)) 1 ampul NEB Q6HR NEB [facility] Last Admin: 02/01/18 16:30 Dose: 1 ampul Bupropion HCl (Wellbutrin Sr) 150 mg PO DAILY [facility] Last Admin: 02/01/18 09:53 Dose: Not Given Enoxaparin Sodium (Lovenox Inj) 40 mg SQ Q24H [facility] Last Admin: 02/01/18 10:07 Dose: 40 mg Fentanyl (Duragesic 50 Mcg Patch.72hr) 1 patch T-DERMAL Q3D [facility] Last Admin: 02/01/18 16:59 Dose: 1 patch Magnesium Sulfate Inj 4 gm/ (Sodium Chloride) 100 mls @ 50 mls/hr IV.SIG UNSCH PRN PRN Reason: For Magnesium 0.9 - 1.1 mg/dL Magnesium Sulfate Inj 2 gm/ (Sodium Chloride) 100 mls @ 50 mls/hr IV.SIG UNSCH PRN PRN Reason: For Magnesium 1.2 - 1.6 mg/dL Potassium Chloride (Kcl 40 Meq Premix Inj) 40 meq in 100 mls @ 25 mls/hr IV.SIG Q2H PRN PRN Reason: For Potassium 2.8 - 3.2 mEq/L Potassium Chloride (Kcl 20 Meq Premix Inj) 20 meq in 100 mls @ 50 mls/hr IV.SIG Q2H PRN PRN Reason: For Potassium 3.3 - 3.5 mEq/L Potassium Chloride (Kcl 40 Meq Premix Inj) 40 meq in 100 mls @ 25 mls/hr IV.SIG UNSCH PRN PRN Reason: For Potassium 3.3 - 3.5 mEq/L Potassium Chloride (Kcl 20 Meq Premix Inj) 20 meq in 100 mls @ 50 mls/hr IV.SIG Q2H PRN PRN Reason: For Potassium 2.8 - 3.2 mEq/L Potassium Phosphate 30 mmol/ (Sodium Chloride) 260 mls @ 42 mls/hr IV.SIG UNSCH PRN PRN Reason: SEE LABEL COMMENTS Sodium Phosphate 30 mmol/ (Sodium Chloride) 260 mls @ 42 mls/hr IV.SIG UNSCH PRN PRN Reason: For Phosphorus < 2.5 mg/dL Piperacillin/Tazobactam/Dextrose (Zosyn 3.375 Gm Premix) 50 mls @ 100 mls/hr IV.SIG Q6H [facility] Last Infusion: 02/01/18 18:15 Dose: 100 mls/hr Pharmacy Profile Note (Vancomycin Consult Pharmacy) 0 mls @ 0 mls/hr OTHER UNSCH [facility] Vancomycin HCl 1,500 mg/ (Sodium Chloride) 515 mls @ 250 mls/hr IV.SIG Q12H JOSE J Lactulose (Lactulose Liq) 30 ml PO DAILY PRN PRN Reason: SEVERE CONSITIPATION Lactulose (Lactulose Liq) 30 ml PO DAILY [facility] Last Admin: 02/01/18 09:53 Dose: Not Given Magnesium Oxide (Mag-Ox) 800 mg PO UNSCH PRN PRN Reason: For Magnesium 1.2 - 1.6 mg/dL Methocarbamol (Robaxin) 500 mg PO Q6H [facility] Last Admin: 02/01/18 15:51 Dose: 500 mg Miscellaneous Information ([facility] Ordered Lab Info) 0 each OTHER ONCE ONE Stop: 02/03/18 10:46 Naloxone HCl (Narcan Inj) 0.4 mg IV.PUSH UNSCH PRN PRN Reason: SEE LABEL COMMENTS Ondansetron HCl (Zofran Inj) 4 mg IV.PUSH Q6H PRN PRN Reason: NAUSEA OR VOMITING Oxycodone HCl (Roxicodone) 5 mg PO Q4H PRN PRN Reason: PAIN SCALE 3 TO 5 Oxycodone HCl (Roxicodone) 10 mg PO Q4H PRN PRN Reason: PAIN SCALE 6 TO 10 Last Admin: 02/01/18 14:07 Dose: 10 mg Pantoprazole Sodium (Protonix) 40 mg PO DAILY [facility] Last Admin: 02/01/18 09:53 Dose: Not Given Patch Removal (Remove Old Patch) 1 each T-DERMAL Q3D [facility] Last Admin: 02/01/18 15:51 Dose: 1 each Potassium Bicarb/Potassium Chloride (K-Lyte Cl Eff) 50 meq PO UNSCH PRN PRN Reason: For Potassium 3.3 - 3.5 mEq/L Last Admin: 01/31/18 19:15 Dose: 50 meq Potassium Phosphate (K-Phos Original) 2,000 mg PO UNSCH PRN PRN Reason: SEE LABEL COMMENTS Potassium Phosphate (K-Phos Original) 2,000 mg PO Q4H PRN PRN Reason: Phosphorus Less Than 2.5 mg/dL Senna/Docusate Sodium (Nanette-Colace) 1 tab PO BID [facility] Last Admin: 02/01/18 09:53 Dose: Not Given Sennosides (Senokot) 17.2 mg PO Q12H PRN PRN Reason: Moderate Constipation Tamsulosin HCl (Flomax) 0.4 mg PO DAILY [facility] Last Admin: 02/01/18 09:53 Dose: Not Given Allergies Allergy/AdvReac Type Severity Reaction Status Date / Time No Known Allergies Allergy Verified 01/22/18 15:24 Home Medications Medication Instructions Recorded Confirmed Type B12 PO DAILY 01/22/18 History aspirin 01/22/18 History bupropion HCl 150 mg PO DAILY 01/22/18 01/22/18 History celecoxib PO DAILY 01/22/18 History donepezil PO DAILY 01/22/18 History [id number] [Cerefolin] 1 tab PO DAILY 01/22/18 01/22/18 History multivitamin PO DAILY 01/22/18 History saw palmetto 450 PO DAILY 01/22/18 History tamsulosin 0.4 mg PO DAILY 01/22/18 01/22/18 History Exam Vital signs: Vital Signs 01/31/18 19:55 01/31/18 20:00 01/31/18 22:00 Temperature 99.4 F Pulse Rate 98 H 100 H Respiratory Rate 24 Blood Pressure 162/81 H Pulse Oximetry 95 93 L 02/01/18 00:00 02/01/18 02:00 02/01/18 03:46 Temperature 98.8 F Pulse Rate 94 H 92 H Respiratory Rate 20 22 Blood Pressure 159/77 H Pulse Oximetry 99 02/01/18 04:00 02/01/18 05:45 02/01/18 06:00 Temperature 98.8 F Pulse Rate 94 H 84 Respiratory Rate 28 H Blood Pressure 163/77 H Pulse Oximetry 96 98 02/01/18 07:00 02/01/18 08:00 02/01/18 08:24 Temperature 98.5 F Pulse Rate 96 H 84 Respiratory Rate 28 H 30 H 24 Blood Pressure 147/78 H 129/60 Pulse Oximetry 91 L 94 L 02/01/18 08:32 02/01/18 09:00 02/01/18 09:58 Temperature Pulse Rate 70 108 H Respiratory Rate 19 24 Blood Pressure 129/58 L Pulse Oximetry 93 L 96 02/01/18 10:00 02/01/18 11:00 02/01/18 12:00 Temperature 98.5 F Pulse Rate 86 82 Respiratory Rate 26 H 28 H 24 Blood Pressure 132/69 149/70 H Pulse Oximetry 94 L 94 L 02/01/18 12:30 02/01/18 14:37 02/01/18 15:52 Temperature 99.2 F Pulse Rate 88 84 Respiratory Rate 26 H 24 28 H Blood Pressure 150/73 H Pulse Oximetry 94 L 02/01/18 16:00 02/01/18 16:31 02/01/18 18:00 Temperature 99.3 F Pulse Rate 82 100 H 95 H Respiratory Rate 28 H 22 22 Blood Pressure 138/65 Pulse Oximetry 94 L 93 L Intake & Output 01/31/18 02/01/18 02/01/18 18:59 06:59 18:59 Intake Total 480 / 480 2310 / 2310 Output Total 850 / 850 520 / 520 775 / 775 Balance -370 / -370 -520 / -520 1535 / 1535 Weight 111.2 kg Intake: IV 1590 / 1590 Zosyn 3.375 GM Premix 50 ML @ 50 / 50 100 mls/hr IV.SIG Q6H JOSE J Rx#: [id number] NS Inj 1,000 ML @ 30 mls/hr IV. 1000 / 1000 SIG .Q24H JOSE J Rx#:[id number] Vancomycin Inj 2,000 MG In NS 540 / 540 Inj 500 ML @ 250 mls/hr IV.SIG ONCE ONE Rx#:[id number] Oral 480 / 480 720 / 720 Output: Urine 300 / 300 750 / 750 Urine Amount (Catheter) 750 / 750 200 / 200 Condom 750 / 750 200 / 200 Chest Tube Drainage 100 / 100 20 / 20 25 / 25 Right 100 / 100 20 / 20 25 / 25 Other: # Incontinent Voids 3 2 Date of Last Bowel Movement 01/31/18 01/31/18 01/31/18 # Bowel Movements 1 - Constitutional mild distress, average body habitus - Routine HEENT Exam Head: Present: normocephalic, atraumatic Eye: Present: EOMI, PERRL ENT: Present: mucous membranes moist, oropharynx clear Comments: poor dentition - Routine Neck Exam Present: supple, full ROM - Routine Respiratory Exam Present: decreased breath sounds, rales, rhonchi (diffuse b/l ) - Routine Cardiovascular Exam Present: RRR, S1, S2 Comments: no murmurs rubs or gallops - Routine Abdominal Exam Present: soft, normoactive bowel sounds, distended Comments: no hepatomegaly or masses - Routine Extremities Exam Comments: Pulmonary contusions with pneumo hemathorax PNA, gram negative - Routine Skin Exam Present: intact, dry, warm - Routine Neurological Exam Present: CN II-XII intact, moving all extremities, vision grossly intact, hearing grossly intact lethargic, - Routine Psychiatric Exam Present: unable to assess Results - Labs CBC & Chem 7: 02/01/18 03:22 02/01/18 03:22 Labs: Laboratory Results - last 24 hr 02/01/18 02/01/18 03:22 03:22 WBC 27.6 H RBC 3.04 L Hgb 9.8 L Hct 29.3 L MCV 96.4 MCH 32.2 MCHC 33.4 RDW 13.9 Plt Count 376 MPV 8.2 Prelim Diff (Auto) Slide review pending Neut % (Auto) 82.8 H Lymph % (Auto) 6.3 L Surry % (Auto) 10.2 H Eos % (Auto) 0.6 Baso % (Auto) 0.1 Neut # (Auto) 22.9 H Lymph # (Auto) 1.7 Surry # (Auto) 2.8 H Eos # (Auto) 0.2 Baso # (Auto) 0.0 WBC Differential . Diff Scan Auto diff confirmed Differential Comment . Platelet Estimate Normal Platelet Morphology Normal Sodium 147 H Potassium 3.8 Chloride 105 Carbon Dioxide 35.4 H Anion Gap 7 BUN 18 Creatinine 0.52 L Estimated GFR Greater than 89 Random Glucose 112 H Calcium 7.8 L Total Bilirubin 2.2 H AST 24 ALT 31 Alkaline Phosphatase 85 Total Protein 6.2 L Albumin 1.8 L - Imaging Impressions Chest X-Ray 02/01/18 06:00 CONCLUSION: 1. Bibasilar consolidation and small effusions persist, not significantly changed. 2. Right chest tube remains in place. No pneumothorax. 3. Right rib fractures are again noted. Assessment and Plan - Plan Pulmonary contusions PNA, gram negative Pneumohemothorax sp R chest tube placement Worsening leukocytosis cont zosyn vancomycin Fu culture from BAL , will adjust abx accordingly However if worsening clincially will expand gram negative coverage prior to availbaility of ID/S rik RN rik Sommers
[2018-02-01] MEDS ORDERED: Vancomycin Inj 1,500 MG in Sodium Chlor 0.9% Inj 500 ML IV.SIG SCH (23:00)
[2018-02-02] MEDS: Senna/Docusate Sodium 8.6/50 MG Tablet PO SCH ×3 (00:43→21:02)
[2018-02-02] MEDS: Methocarbamol 500 MG Tablet PO SCH ×5 (00:43→21:02)
[2018-02-02] MEDS: Piperacil/Tazo 3.375 GM Premix 50 ML IV.SIG SCH ×3 (00:45→09:39)
[2018-02-02 03:23] LABS: Baso % (Auto) 0.2 % (0.0-2.0); Eos # (Auto) 0.2 th/mm3 (0.0-0.4); Eos % (Auto) 0.9 % (0.0-4.0); Hematocrit 27.9 % (39.0-51.0); Hemoglobin 9.3 gm/dL (13.0-17.0); Lymph # (Auto) 1.6 th/mm3 (1.0-4.8); Lymph % (Auto) 7.3 % (9.0-44.0); Mean Corpuscular HGB Conc 33.2 % (32.0-36.0); Mean Corpuscular Hemoglobin 32.4 pg (27.0-34.0); Mean Corpuscular Volume 97.4 fL (80.0-100.0); Mean Platelet Volume 8.2 fL (7.0-11.0); Mono # (Auto) 2.7 th/mm3 (0.0-0.9); Mono % (Auto) 12.2 % (0.0-8.0); Neut # (Auto) 17.9 th/mm3 (1.8-7.7); Neut % (Auto) 79.4 % (16.0-70.0); Platelet Count 337 th/mm3 (150-450); Red Blood Count 2.86 mil/mm3 (4.50-5.90); Red Cell Distribution Width 14.3 % (11.6-17.2); White Blood Count 22.5 th/mm3 (4.0-11.0)
[2018-02-02 03:46] LABS: Alanine Aminotransferase 30 U/L (12-78); Albumin 1.6 g/dL (3.4-5.0); Anion Gap 3 meq/L (5-15); Aspartate Aminotransferase 22 U/L (15-37); Blood Urea Nitrogen 18 mg/dL (7-18); Calcium 7.8 mg/dL (8.5-10.1); Carbon Dioxide 37.7 meq/L (21.0-32.0); Chloride 106 meq/L (98-107); Glomerular Filtration Rate Greater Than 89 mL/min (>89); Glucose,Random 111 mg/dL (74-106); Potassium 3.6 meq/L (3.5-5.1); Sodium 147 meq/L (136-145)
[2018-02-02 03:48] LABS: Alkaline Phosphatase 81 U/L (45-117); Total Protein 5.8 g/dL (6.4-8.2)
--- NOTE | 2018-02-02 03:55 | XR ---
EXAM DATE: 02/02/2018 3:49 AM EDT AGE/SEX: 67 years / Male INDICATIONS: Shortness of breath. CLINICAL DATA: This is the patient's subsequent encounter. Patient reports that signs and symptoms h ave been present for 3 days and indicates a pain score of Nonresponsive. MEDICAL/SURGICAL HISTORY: Hypertension. None. COMPARISON: C, CHEST 1V SINGLE AP, 02/01/2018. . FINDINGS: Rib fractures and a chest tube are again seen on the right. There is parenchymal consolidation and sm all effusion at the right base. I don't see a pneumothorax. Very mild consolidation and small effusion at the left base not significantly changed. CONCLUSION: 1. Right greater than left basilar consolidation and pleural effusions not significantly changed. 2. Rib fractures and chest tube again noted on the right. No pneumothorax. Electronically signed by: Uriah Manzanares MD 02/02/2018 3:53 AM EDT
[2018-02-02 04:32] LABS: Platelet Estimate Normal (Normal); Platelet Morphology Normal (Normal)
[2018-02-02 04:36] LABS: Dohle Bodies Present
[2018-02-02] MEDS: buPROPion 150 MG 12 HR Tablet PO SCH (09:39)
--- NOTE | 2018-02-02 12:03 | P.PNID ---
Subjective Remarks: feels better afebrile Growing briceno S Proteus More awake. PMH reviewed with pt and his dght: no active med prob ; sp L pine lami and R total hip replacement (both remote) Antibiotics: vanc zosyn Allergies/Adverse Reactions: Allergies No Known Allergies Allergy (Verified 01/22/18 15:24) Objective Vital Signs 02/01/18 12:00 02/01/18 12:30 02/01/18 14:37 Temperature 99.2 F Pulse Rate 88 84 Respiratory Rate 24 26 H 24 Blood Pressure 150/73 H Pulse Oximetry 94 L 02/01/18 15:52 02/01/18 16:00 02/01/18 16:31 Temperature 99.3 F Pulse Rate 82 100 H Respiratory Rate 28 H 28 H 22 Blood Pressure 138/65 Pulse Oximetry 94 L 93 L 02/01/18 18:00 02/01/18 20:00 02/01/18 20:56 Temperature 98.7 F Pulse Rate 95 H 99 H Respiratory Rate 22 30 H Blood Pressure 137/75 Pulse Oximetry 95 96 02/01/18 22:00 02/01/18 23:44 02/02/18 00:00 Temperature 99.1 F Pulse Rate 79 86 87 Respiratory Rate 18 23 Blood Pressure 132/64 Pulse Oximetry 94 L 02/02/18 00:05 02/02/18 00:42 02/02/18 02:00 Temperature Pulse Rate 83 Respiratory Rate 23 Blood Pressure Pulse Oximetry 94 L 02/02/18 02:31 02/02/18 04:00 02/02/18 05:40 Temperature 98.9 F Pulse Rate 76 Respiratory Rate 17 26 H Blood Pressure 145/73 H Pulse Oximetry 98 02/02/18 06:00 02/02/18 08:36 Temperature Pulse Rate 76 81 Respiratory Rate 22 Blood Pressure Pulse Oximetry 92 L Intake & Output 02/01/18 02/02/18 02/02/18 18:59 06:59 18:59 Intake Total 2310 / 2310 1330 / 1330 Output Total 775 / 775 550 / 550 Balance 1535 / 1535 780 / 780 Intake: IV 1590 / 1590 900 / 900 Zosyn 3.375 GM Premix 50 ML @ 50 / 50 150 / 150 100 mls/hr IV.SIG Q6H ÁNGELA Rx#: [id number] NS Inj 1,000 ML @ 30 mls/hr IV. 1000 / 1000 SIG .Q24H [facility] Rx#:[id number] Vancomycin Inj 1,500 MG In NS 750 / 750 Inj 500 ML @ 250 mls/hr IV.SIG Q12H [facility] Rx#:[id number] Vancomycin Inj 2,000 MG In NS 540 / 540 Inj 500 ML @ 250 mls/hr IV.SIG ONCE ONE Rx#:[id number] Oral 720 / 720 430 / 430 Output: Urine 750 / 750 Urine Amount (Catheter) 550 / 550 Condom 550 / 550 Chest Tube Drainage 0 / 0 Right 0 / 0 Other: Date of Last Bowel Movement 01/31/18 01/31/18 # Bowel Movements 0 01/31/18 11:05 Bronchial - Bronchial Gram Stain - Final 01/31/18 11:05 Bronchial - Bronchial Bronchial Culture - Final Proteus mirabilis 01/31/18 11:05 Bronchial Washings - Bronchial Fungal Smear - Final No fungal elements seen 01/31/18 11:05 Bronchial Washings - Bronchial Fungal Culture - Pending 01/31/18 11:05 Bronchial Washings - Bronchial Acid Fast Bacilli Smear - Final No acid fast bacilli seen 01/31/18 11:05 Bronchial Washings - Bronchial Mycobacterial Culture - Pending Lab - Hematology Results 02/01/18 02/02/18 03:22 02:43 WBC 27.6 H 22.5 H RBC 3.04 L 2.86 L Hgb 9.8 L 9.3 L Hct 29.3 L 27.9 L MCV 96.4 97.4 MCH 32.2 32.4 MCHC 33.4 33.2 RDW 13.9 14.3 Plt Count 376 337 MPV 8.2 8.2 Prelim Diff (Auto) Slide review pending Slide review pending Neut % (Auto) 82.8 H 79.4 H Lymph % (Auto) 6.3 L 7.3 L Pre[place] % (Auto) 10.2 H 12.2 H Eos % (Auto) 0.6 0.9 Baso % (Auto) 0.1 0.2 Neut # (Auto) 22.9 H 17.9 H Lymph # (Auto) 1.7 1.6 Preble # (Auto) 2.8 H 2.7 H Eos # (Auto) 0.2 0.2 Baso # (Auto) 0.0 0.0 WBC Differential . . Diff Scan Auto diff confirmed Auto diff confirmed Differential Comment . . Dohle Bodies Present H Platelet Estimate Normal Normal Platelet Morphology Normal Normal Polychromasia 2.0 H Basophilic Stippling Faint H Lab - Chemistry Results 02/01/18 02/02/18 03:22 02:43 Sodium 147 H 147 H Potassium 3.8 3.6 Chloride 105 106 Carbon Dioxide 35.4 H 37.7 H Anion Gap 7 3 L BUN 18 18 Creatinine 0.52 L 0.58 L Estimated GFR Greater than 89 Greater than 89 Random Glucose 112 H 111 H Calcium 7.8 L 7.8 L Total Bilirubin 2.2 H 2.2 H AST 24 22 ALT 31 30 Alkaline Phosphatase 85 81 Total Protein 6.2 L 5.8 L Albumin 1.8 L 1.6 L Imaging: ITS Impressions Pelvis X-Ray 01/21/18 11:34 CONCLUSION: The bony pelvic ring appears grossly intact. Abdomen/Pelvis CT 01/21/18 11:36 CONCLUSION: No acute traumatic injury in the abdomen or pelvis. Cervical Spine CT 01/21/18 11:36 CONCLUSION: 1. No evidence of fracture or spondylolisthesis. 2. Multilevel advanced degenerative changes with neural foraminal stenosis as described above. 3. Prominent deep soft tissue emphysema stable from the right chest into the right neck. Head CT 01/21/18 11:36 CONCLUSION: No acute intracranial injury . Lumbar Spine CT 01/21/18 11:38 CONCLUSION: 1. Advanced degenerative changes throughout the lumbar spine. No acute fracture seen. 2. The patient is post laminectomy at L3 and L4. 3. No enhancing lesion identified. 4. Note is made of pleural effusion on the right side. Note is made of subcutaneous emphysema along the back and right chest Thoracic Spine CT 01/21/18 11:38 CONCLUSION: 1. No fractures of the thoracic vertebral bodies. 2. Multiple fractures of the medial right fifth through eighth ribs, several which involve the costovertebral joint. Chest CT 01/29/18 08:22 CONCLUSION: 1. Severe dense airspace consolidation and volume loss involving the right lower lobe with areas of cavitation. This appearance is similar to the most recent study from 4 days ago. 2. Mild consolidation in the left lower lobe but overall improved aeration of the left lower lobe. 3. Trace bilateral pleural fluid. Large bore right chest tube remains present posteriorly. 4. There are secretions in the dependent aspect of the trachea indicating aspiration. 5. Multiple displaced right rib fractures are again identified involving the fourth through ninth ribs. Displaced right scapular fracture is also again identified. Chest X-Ray 02/02/18 06:00 CONCLUSION: 1. Right greater than left basilar consolidation and pleural effusions not significantly changed. 2. Rib fractures and chest tube again noted on the right. No pneumothorax. Physical Exam: GENERAL: NAD SKIN: Warm and dry. no rash HEAD: Atraumatic. Normocephalic. EYES: Pupils equal and round. No scleral icterus. No injection or drainage. ENT: No nasal bleeding or discharge. Mucous membranes pink and moist. NECK: Trachea midline. No JVD. CARDIOVASCULAR: Regular rate and rhythm. RESPIRATORY: No accessory muscle use. Few rhocnhi to auscultation. Breath sounds equal bilaterally. R CT in place with serosang dc GASTROINTESTINAL: Abdomen soft, non-tender, nondistended. Hepatic and splenic margins not palpable. MUSCULOSKELETAL: Extremities without clubbing, cyanosis, or edema. No obvious deformities. NEUROLOGICAL: Awake and alert. No obvious cranial nerve deficits. Motor grossly within normal limits. Five out of 5 muscle strength in the arms and legs. Normal speech. PSYCHIATRIC: Appropriate mood and affect; insight and judgment normal. Assessment and Plan - Plan Pulmonary contusions PNA, Proteus briceno S Pneumohemothorax sp R chest tube placement Worsening leukocytosis change zosyn to Amp/S dc vancomycin However if worsening clincially will expand gram negative coverage prior to availbaility of ID/S rik jolly dgtr @ b/s
[2018-02-02] MEDS: Enoxaparin Inj 40 MG/0.4 ML Syringe SQ SCH (13:08)
--- NOTE | 2018-02-02 16:17 | P.PNCC ---
Subjective Brief History: 67-year-old male JAIL severe blunt chest trauma with hemopneumothorax- hemorrhagic shock 24 Hour Review/Hospital Course: 01/22 She required 4 units of RBC, 2 units of FFP for resuscitation blood pressure to normal level Chest tube put out 1600/cc-most of the output is initial-his output has been 150 cc overnight He is hemodynamically normal in the morning he is sedated with propofol and fentanyl Vent settings are 40% FiO2 and 5 of PEEP-saturations are satisfactory level Chest x-ray shows minimal pleural effusion Urine output is within normal limits 01/23 Patient is doing well Chest tube output 700 cc the last 24 hours Chest x-ray only small hemothorax, chest tube output is clearing up pF ratio more than 200 Output is adequate patient is hemodynamically normal tolerated the switch to propofol He has been started on tube feeds and is tolerating them well 01/24/2018 Patient remains sedated on propofol however with somewhat decrease in the arterial blood pressure so we will switch patient to Versed. Response to verbal stimuli follows very simple commands Hemodynamically patient is relatively stable however as noted above seems to be dropping pressure with propofol Once switched to Versed, will decide which way to go with the patient needs some additional fluids or other measures Bilateral breath sounds Improved aeration of both lungs and improved PO2 FiO2 gradient due to VQ mismatch reduction and improvement in the right lung Chest tube drainage about 230 cc over 24 hours serosanguineous material Abdomen soft Plan CT scan of the chest today to assess for any residual hemothorax on the right side Modified sedation We will gradually wean patient down and see how he does in next few days as far as extubation is concerned 01/25/2018 Patient is improving every day slightly Sedated on propofol and fentanyl and due to good PO2 FiO2 gradient will start weaning Propofol on hold fentanyl small dose continued Hemodynamically stable Repeat CT of the chest reveals bilateral basilar atelectasis however patient does not have significant hemothorax that would require any further drainage and this is going to resolve on its own Bilateral breath sounds on AC mode ventilation with improving PO2 FiO2 gradient We will start placing patient on CPAP trials Gentle diuresis Patient will be weaned as tolerated and he should probably come off the ventilator by Wednesday or Wednesday depending on recovery of neurologic cognitive function as well as right chest respiratory dynamics There is a small chance patient might need a tracheostomy but I do not think he will 01/26/2018 Patient neurologically improved since yesterday With removal of propofol and decreasing fentanyl patient is fully awake and alert Following commands oriented in time and space trying to write Hemodynamically stable Bilateral breath sounds good inspiratory effort no air leak in the chest tube and drainage is serosanguineous and significantly decreased We will place chest tube on waterseal Patient passed CPAP trials and will be extubated this morning Out of bed Will start on a diet after bedside swallow 01/27/2018 Patient doing very well at this time successfully extubated yesterday Awake alert and oriented following commands neurologically intact although weak [place] Coma Scale 15 Hemodynamically stable Bilateral breath sounds decreased over the both lung marquez bases but patient taking good breaths and coughing up Chest the drain is still around 300 cc over 24 hours of serosanguineous material and this is consistent with inflammation of the right chest both visceral and parietal pleura so will leave the chest tube in for another day Past swallow test today and will be started on mechanical diet and switched to p.o. medications Transfer to floor and as soon as available rehab 01/28/2018 Patient was doing very well in the floor yesterday but then apparently desaturated this morning slightly and ABGs reveal slight hypercapnia. Based on the judgment of the [facility] trauma surgeon patient was transferred back to ICU for some closer observation and care Patient is awake alert and oriented somewhat somnolent at times Hemodynamically stable Bilateral breath sounds decreased over the both bases right more than left consistent with the consolidation of the right lower lobe I do not see any increase in fluid however patient clearly is still draining about 300 cc per 24 hours of serosanguineous fluid from the chest tube which is consistent with inflammation of the parietal and visceral pleura No air leak We will keep patient in ICU for a day or 2 work with him aggressively and respiratory parameters and see how he does 01/29/2018 Neurologic patient is fully intact Taken back to the ICU from the floor because of the questionable difficulty breathing Bilateral breath sounds some rhonchi over the right lung field consistent with a previous pulmonary injury however patient is taking deep breaths and saturating well Improving PO2 FiO2 gradient with aggressive respiratory therapy Repeat CT scan of the chest tomorrow to see if patient has large and loculated pleural effusion or perhaps a posterior hemothorax. At least he will have fairly significant bibasilar infiltrates and I may take patient to the [facility] for bronchoscopy and washout In the worse case scenario patient will need a thoracoscopy should he have an loculated posterior hemothorax Abdomen is soft patient is tolerating diet well 01/30/2018 Patient is awake and alert and finally had one night of sleep Hemodynamically stable Bilateral breath sounds very decreased over the both lung bases with some rhonchi and dull on percussion Chest tube drainage about 300 cc of serous fluid over last 24 hours which is clearly inflammatory as a result of trauma Respiratory patient had deteriorated over the last few days and was retaining CO2 with poor PO2 FiO2 gradient Placed on BiPAP mask yesterday afternoon, on which she is doing much better Saturation 99% We will try a nasal cannula and diet today CT of the chest reveals very little fluid however patient does have complete consolidation of the right lower lobe and this is combination of severe lung trauma, combined with inspissated secretions and inability to expand this area Will take patient tomorrow to bronchoscopy lab to clean out the respiratory tree 01/31/2018 Patient awake alert and oriented Consolidation of the right lung superimposed on underlying injury is causing significant VQ mismatch and hypoxia in face of underlying COPD and a long smoking history. Altogether patient is desaturating very easily Hypercapnic and hypoxic with poor PO2 FiO2 gradient. Underwent successful bronchoscopy today with evacuation of massive amounts of secretions from the right lung We will place on high flow oxygen at this time and see how patient does then gradually wean down 02/01/2018 Patient is awake alert and oriented Hemodynamically stable Had successful bronchoscopy yesterday with evacuation of large amounts of secretions from the right mainstem and the operations of the right lower and middle lobe Bilateral good breath sounds decreased over the right lung base consistent with the previous contusion and some atelectasis that remains White count 27,000 today which is certainly spike from yesterday which could be due to the bronchoscopy and stirring up of everything patient was placed on IV antibiotics including Vanco and Zosyn and infectious disease was consulted PO2 FiO2 gradient is definitely improved at this time patient is now nasal cannula doing fairly well Abdomen soft active bowel sounds diet tolerated 02/02/2018 Patient awake alert oriented Neurologically fully intact Tolerating diet well Bilateral breath sounds decreased over the right base Coughing up purulent appearing thick sputum mixed in with blood which is consistent with a right lower lobe injury PO2 FiO2 gradient is slowly improving and patient is doing well on the 30 L/40% high flow nasal cannula We will gradually decrease FiO2 and the flow rate and patient can transfer to rehab any time [facility] will accept the patient as soon as approved Patient is not very compliant with care and does not like to get out of bed Abdomen soft Objective Vital Signs / I&O: Vital Signs 02/01/18 16:31 02/01/18 18:00 02/01/18 20:00 Temperature 98.7 F Pulse Rate 100 H 95 H 99 H Respiratory Rate 22 22 30 H Blood Pressure 137/75 Pulse Oximetry 93 L 95 02/01/18 20:56 02/01/18 22:00 02/01/18 23:44 Temperature Pulse Rate 79 86 Respiratory Rate 18 Blood Pressure Pulse Oximetry 96 02/02/18 00:00 02/02/18 00:05 02/02/18 00:42 Temperature 99.1 F Pulse Rate 87 Respiratory Rate 23 23 Blood Pressure 132/64 Pulse Oximetry 94 L 94 L 02/02/18 02:00 02/02/18 02:31 02/02/18 04:00 Temperature 98.9 F Pulse Rate 83 76 Respiratory Rate 17 Blood Pressure 145/73 H Pulse Oximetry 98 02/02/18 05:40 02/02/18 06:00 02/02/18 08:36 Temperature Pulse Rate 76 81 Respiratory Rate 26 H 22 Blood Pressure Pulse Oximetry 92 L 02/02/18 15:59 Temperature Pulse Rate 85 Respiratory Rate 17 Blood Pressure Pulse Oximetry Intake & Output 02/01/18 02/02/18 02/02/18 18:59 06:59 18:59 Intake Total 2310 / 2310 1330 / 1330 Output Total 775 / 775 550 / 550 Balance 1535 / 1535 780 / 780 Intake: IV 1590 / 1590 900 / 900 Zosyn 3.375 GM Premix 50 ML @ 50 / 50 150 / 150 100 mls/hr IV.SIG Q6H [facility] Rx#: [id number] NS Inj 1,000 ML @ 30 mls/hr IV. 1000 / 1000 SIG .Q24H [facility] Rx#:[id number] Vancomycin Inj 1,500 MG In NS 750 / 750 Inj 500 ML @ 250 mls/hr IV.SIG Q12H [facility] Rx#:[id number] Vancomycin Inj 2,000 MG In NS 540 / 540 Inj 500 ML @ 250 mls/hr IV.SIG ONCE ONE Rx#:[id number] Oral 720 / 720 430 / 430 Output: Urine 750 / 750 Urine Amount (Catheter) 550 / 550 Condom 550 / 550 Chest Tube Drainage 25 / 25 0 / 0 Right 25 / 25 0 / 0 Other: Date of Last Bowel Movement 01/31/18 01/31/18 # Bowel Movements 0 Result Diagrams: 02/02/18 02:43 02/02/18 02:43 Imaging: Impressions Chest X-Ray 02/02/18 06:00 CONCLUSION: 1. Right greater than left basilar consolidation and pleural effusions not significantly changed. 2. Rib fractures and chest tube again noted on the right. No pneumothorax. Disinhibition Score: 14.00 Aggression Score: 14.00 Lability Score: 14.00 Agitated Behavior Total Score: 14 Assessment and Plan Plan: monitor patient's chest tube output and CBC closely tube feeds DVT prophylaxis started today Chest x-ray tomorrow pain control and sedation CT of the chest early on Wednesday to exclude the residual chayito Attestation: Critical care time 32 minutes
[2018-02-02] MEDS: Ampicillin/Sulbactam Inj 3 GM in Sodium Chloride 0.9% Inj 100 ML IV.SIG SCH ×2 (18:52→20:50)
[2018-02-03] MEDS: Ampicillin/Sulbactam Inj 3 GM in Sodium Chloride 0.9% Inj 100 ML IV.SIG SCH ×4 (03:01→20:34)
[2018-02-03] MEDS: Methocarbamol 500 MG Tablet PO SCH ×4 (03:57→22:24)
--- NOTE | 2018-02-03 04:09 | XR ---
EXAM DATE: 02/03/2018 3:56 AM EDT AGE/SEX: 67 years / Male INDICATIONS: Post right chest tube removal CLINICAL DATA: This is the patient's initial encounter. Patient reports that signs and symptoms have been present for 1 day and indicates a pain score of Nonresponsive. MEDICAL/SURGICAL HISTORY: Hypertension. None. COMPARISON: [facility] [place]ST 1V SINGLE AP, 02/02/2018. . FINDINGS: Right rib fractures are again noted. The chest tube has been removed. No perceptible pneumothorax. Th e parenchymal consolidation and small pleural effusion at the right base are not significantly change d. Mild consolidation and tiny effusion at the left base unchanged. No left pneumothorax. Heart size stable, within normal limits. CONCLUSION: 1. Right greater than left basilar consolidation and pleural effusions not significantly changed. 2. Right chest tube removed. No pneumothorax. Right rib fractures are again seen. Electronically signed by: Uriah Manzanares MD 02/03/2018 4:07 AM EDT
[2018-02-03] MEDS: Senna/Docusate Sodium 8.6/50 MG Tablet PO SCH ×2 (08:45→20:34)
[2018-02-03] MEDS: buPROPion 150 MG 12 HR Tablet PO SCH (08:45)
[2018-02-03] MEDS ORDERED: Pharmacy Ordered Lab Info OTHER ONE (10:45)
[2018-02-03] MEDS: Enoxaparin Inj 40 MG/0.4 ML Syringe SQ SCH (12:44)
--- NOTE | 2018-02-03 14:45 | P.PNCC ---
Subjective Brief History: 67-year-old male [facility] severe blunt chest trauma with hemopneumothorax- hemorrhagic shock 24 Hour Review/Hospital Course: 01/22 She required 4 units of RBC, 2 units of FFP for resuscitation blood pressure to normal level Chest tube put out 1600/cc-most of the output is initial-his output has been 150 cc overnight He is hemodynamically normal in the morning he is sedated with propofol and fentanyl Vent settings are 40% FiO2 and 5 of PEEP-saturations are satisfactory level Chest x-ray shows minimal pleural effusion Urine output is within normal limits 01/23 Patient is doing well Chest tube output 700 cc the last 24 hours Chest x-ray only small hemothorax, chest tube output is clearing up pF ratio more than 200 Output is adequate patient is hemodynamically normal tolerated the switch to propofol He has been started on tube feeds and is tolerating them well 01/24/2018 Patient remains sedated on propofol however with somewhat decrease in the arterial blood pressure so we will switch patient to Versed. Response to verbal stimuli follows very simple commands Hemodynamically patient is relatively stable however as noted above seems to be dropping pressure with propofol Once switched to Versed, will decide which way to go with the patient needs some additional fluids or other measures Bilateral breath sounds Improved aeration of both lungs and improved PO2 FiO2 gradient due to VQ mismatch reduction and improvement in the right lung Chest tube drainage about 230 cc over 24 hours serosanguineous material Abdomen soft Plan CT scan of the chest today to assess for any residual hemothorax on the right side Modified sedation We will gradually wean patient down and see how he does in next few days as far as extubation is concerned 01/25/2018 Patient is improving every day slightly Sedated on propofol and fentanyl and due to good PO2 FiO2 gradient will start weaning Propofol on hold fentanyl small dose continued Hemodynamically stable Repeat CT of the chest reveals bilateral basilar atelectasis however patient does not have significant hemothorax that would require any further drainage and this is going to resolve on its own Bilateral breath sounds on AC mode ventilation with improving PO2 FiO2 gradient We will start placing patient on CPAP trials Gentle diuresis Patient will be weaned as tolerated and he should probably come off the ventilator by Wednesday or Wednesday depending on recovery of neurologic cognitive function as well as right chest respiratory dynamics There is a small chance patient might need a tracheostomy but I do not think he will 01/26/2018 Patient neurologically improved since yesterday With removal of propofol and decreasing fentanyl patient is fully awake and alert Following commands oriented in time and space trying to write Hemodynamically stable Bilateral breath sounds good inspiratory effort no air leak in the chest tube and drainage is serosanguineous and significantly decreased We will place chest tube on waterseal Patient passed CPAP trials and will be extubated this morning Out of bed Will start on a diet after bedside swallow 01/27/2018 Patient doing very well at this time successfully extubated yesterday Awake alert and oriented following commands neurologically intact although weak [place] Coma Scale 15 Hemodynamically stable Bilateral breath sounds decreased over the both lung marquez bases but patient taking good breaths and coughing up Chest the drain is still around 300 cc over 24 hours of serosanguineous material and this is consistent with inflammation of the right chest both visceral and parietal pleura so will leave the chest tube in for another day Past swallow test today and will be started on mechanical diet and switched to p.o. medications Transfer to floor and as soon as available rehab 01/28/2018 Patient was doing very well in the floor yesterday but then apparently desaturated this morning slightly and ABGs reveal slight hypercapnia. Based on the judgment of the [facility] trauma surgeon patient was transferred back to ICU for some closer observation and care Patient is awake alert and oriented somewhat somnolent at times Hemodynamically stable Bilateral breath sounds decreased over the both bases right more than left consistent with the consolidation of the right lower lobe I do not see any increase in fluid however patient clearly is still draining about 300 cc per 24 hours of serosanguineous fluid from the chest tube which is consistent with inflammation of the parietal and visceral pleura No air leak We will keep patient in ICU for a day or 2 work with him aggressively and respiratory parameters and see how he does 01/29/2018 Neurologic patient is fully intact Taken back to the ICU from the floor because of the questionable difficulty breathing Bilateral breath sounds some rhonchi over the right lung field consistent with a previous pulmonary injury however patient is taking deep breaths and saturating well Improving PO2 FiO2 gradient with aggressive respiratory therapy Repeat CT scan of the chest tomorrow to see if patient has large and loculated pleural effusion or perhaps a posterior hemothorax. At least he will have fairly significant bibasilar infiltrates and I may take patient to the [facility] lab for bronchoscopy and washout In the worse case scenario patient will need a thoracoscopy should he have an loculated posterior hemothorax Abdomen is soft patient is tolerating diet well 01/30/2018 Patient is awake and alert and finally had one night of sleep Hemodynamically stable Bilateral breath sounds very decreased over the both lung bases with some rhonchi and dull on percussion Chest tube drainage about 300 cc of serous fluid over last 24 hours which is clearly inflammatory as a result of trauma Respiratory patient had deteriorated over the last few days and was retaining CO2 with poor PO2 FiO2 gradient Placed on BiPAP mask yesterday afternoon, on which she is doing much better Saturation 99% We will try a nasal cannula and diet today CT of the chest reveals very little fluid however patient does have complete consolidation of the right lower lobe and this is combination of severe lung trauma, combined with inspissated secretions and inability to expand this area Will take patient tomorrow to bronchoscopy lab to clean out the respiratory tree 01/31/2018 Patient awake alert and oriented Consolidation of the right lung superimposed on underlying injury is causing significant VQ mismatch and hypoxia in face of underlying COPD and a long smoking history. Altogether patient is desaturating very easily Hypercapnic and hypoxic with poor PO2 FiO2 gradient. Underwent successful bronchoscopy today with evacuation of massive amounts of secretions from the right lung We will place on high flow oxygen at this time and see how patient does then gradually wean down 02/01/2018 Patient is awake alert and oriented Hemodynamically stable Had successful bronchoscopy yesterday with evacuation of large amounts of secretions from the right mainstem and the operations of the right lower and middle lobe Bilateral good breath sounds decreased over the right lung base consistent with the previous contusion and some atelectasis that remains White count 27,000 today which is certainly spike from yesterday which could be due to the bronchoscopy and stirring up of everything patient was placed on IV antibiotics including Vanco and Zosyn and infectious disease was consulted PO2 FiO2 gradient is definitely improved at this time patient is now nasal cannula doing fairly well Abdomen soft active bowel sounds diet tolerated 02/02/2018 Patient awake alert oriented Neurologically fully intact Tolerating diet well Bilateral breath sounds decreased over the right base Coughing up purulent appearing thick sputum mixed in with blood which is consistent with a right lower lobe injury PO2 FiO2 gradient is slowly improving and patient is doing well on the 30 L/40% high flow nasal cannula We will gradually decrease FiO2 and the flow rate and patient can transfer to rehab any time [facility] will accept the patient as soon as approved Patient is not very compliant with care and does not like to get out of bed Abdomen soft 02/03 improving gradually spo2 93-94% on high flow o2 ID managing abx-WBC still 20 range decreasing in tendency tolerating diet OOB /PT Last CT 01/29 patient had bronchoscopy Objective Vital Signs / I&O: Vital Signs 02/02/18 15:59 02/02/18 16:00 02/02/18 18:00 Temperature 98.5 F Pulse Rate 85 80 78 Respiratory Rate 17 24 Blood Pressure 130/67 Pulse Oximetry 94 L 02/02/18 20:00 02/02/18 20:55 02/02/18 22:00 Temperature 99.2 F Pulse Rate 98 H 85 93 H Respiratory Rate 23 26 H Blood Pressure 133/63 Pulse Oximetry 95 95 02/03/18 00:00 02/03/18 01:33 02/03/18 02:00 Temperature 98.9 F Pulse Rate 82 80 Respiratory Rate 18 Blood Pressure 136/66 Pulse Oximetry 90 L 94 L 02/03/18 02:35 02/03/18 03:32 02/03/18 04:00 Temperature 98.1 F Pulse Rate 77 82 Respiratory Rate 18 19 Blood Pressure 147/69 H Pulse Oximetry 92 L 95 02/03/18 06:00 02/03/18 08:00 02/03/18 08:24 Temperature 98.3 F Pulse Rate 67 67 61 Respiratory Rate 26 H 24 Blood Pressure 150/67 H Pulse Oximetry 93 L 95 02/03/18 10:00 02/03/18 12:00 02/03/18 14:00 Temperature 98.6 F Pulse Rate 73 77 99 H Respiratory Rate 30 H Blood Pressure 143/65 H Pulse Oximetry 92 L Intake & Output 02/02/18 02/03/18 02/03/18 18:59 06:59 18:59 Intake Total 480 / 480 1070 / 1070 100 / 100 Output Total 500 / 500 Balance 480 / 480 570 / 570 100 / 100 Weight 113.8 kg Intake: IV 350 / 350 100 / 100 Unasyn Inj 3 GM In NS Inj 100 300 / 300 100 / 100 ML @ 200 mls/hr IV.SIG Q6H ÁNGELA Rx#:[id number] Oral 480 / 480 720 / 720 Output: Urine 500 / 500 Other: # Incontinent Voids 4 Date of Last Bowel Movement 02/02/18 02/02/1818 # Bowel Movements 2 Result Diagrams: 02/02/18 02:43 02/02/18 02:43 Imaging: Impressions Chest X-Ray 02/03/18 00:00 CONCLUSION: 1. Right greater than left basilar consolidation and pleural effusions not significantly changed. 2. Right chest tube removed. No pneumothorax. Right rib fractures are again seen. Disinhibition Score: 14.00 Aggression Score: 14.00 Lability Score: 14.00 Agitated Behavior Total Score: 14 - Exam [employer]: GCS 15 Hemodynamic/Cardiac: stable Pulmonary/Respiratory: reduced BS r Abdomen/GI Nutrition: soft-tolerating diet Assessment and Plan Plan: continue to wean 02 Continue diet continue pain control LTECH placement
--- NOTE | 2018-02-03 15:01 | P.PNID ---
Subjective Remarks: better R CT removed WBC down to 22 from 27 K afebrile Growing briceno S Proteus brown endotracheal secretions Antibiotics: vanc zosyn Allergies/Adverse Reactions: Allergies No Known Allergies Allergy (Verified 01/22/18 15:24) Objective Vital Signs 02/02/18 15:59 02/02/18 16:00 02/02/18 18:00 Temperature 98.5 F Pulse Rate 85 80 78 Respiratory Rate 17 24 Blood Pressure 130/67 Pulse Oximetry 94 L 02/02/18 20:00 02/02/18 20:55 02/02/18 22:00 Temperature 99.2 F Pulse Rate 98 H 85 93 H Respiratory Rate 23 26 H Blood Pressure 133/63 Pulse Oximetry 95 95 02/03/18 00:00 02/03/18 01:33 02/03/18 02:00 Temperature 98.9 F Pulse Rate 82 80 Respiratory Rate 18 Blood Pressure 136/66 Pulse Oximetry 90 L 94 L 02/03/18 02:35 02/03/18 03:32 02/03/18 04:00 Temperature 98.1 F Pulse Rate 77 82 Respiratory Rate 18 19 Blood Pressure 147/69 H Pulse Oximetry 92 L 95 02/03/18 06:00 02/03/18 08:00 02/03/18 08:24 Temperature 98.3 F Pulse Rate 67 67 61 Respiratory Rate 26 H 24 Blood Pressure 150/67 H Pulse Oximetry 93 L 95 02/03/18 10:00 02/03/18 12:00 02/03/18 14:00 Temperature 98.6 F Pulse Rate 73 77 99 H Respiratory Rate 30 H Blood Pressure 143/65 H Pulse Oximetry 92 L Intake & Output 02/02/18 02/03/18 02/03/18 18:59 06:59 18:59 Intake Total 480 / 480 1070 / 1070 100 / 100 Output Total 500 / 500 Balance 480 / 480 570 / 570 100 / 100 Weight 113.8 kg Intake: IV 350 / 350 100 / 100 Unasyn Inj 3 GM In NS Inj 100 300 / 300 100 / 100 ML @ 200 mls/hr IV.SIG Q6H ÁNGELA Rx#:[id number] Oral 480 / 480 720 / 720 Output: Urine 500 / 500 Other: # Incontinent Voids 4 Date of Last Bowel Movement 02/02/18 02/02/18 02/02/18 # Bowel Movements 2 01/31/18 11:05 Bronchial - Bronchial Gram Stain - Final 01/31/18 11:05 Bronchial - Bronchial Bronchial Culture - Final Proteus mirabilis 01/31/18 11:05 Bronchial Washings - Bronchial Fungal Smear - Final No fungal elements seen 01/31/18 11:05 Bronchial Washings - Bronchial Fungal Culture - Pending 01/31/18 11:05 Bronchial Washings - Bronchial Acid Fast Bacilli Smear - Final No acid fast bacilli seen 01/31/18 11:05 Bronchial Washings - Bronchial Mycobacterial Culture - Pending Lab - Hematology Results 02/02/18 02:43 WBC 22.5 H RBC 2.86 L Hgb 9.3 L Hct 27.9 L MCV 97.4 MCH 32.4 MCHC 33.2 RDW 14.3 Plt Count 337 MPV 8.2 Prelim Diff (Auto) Slide review pending Neut % (Auto) 79.4 H Lymph % (Auto) 7.3 L [place] % (Auto) 12.2 H Eos % (Auto) 0.9 Baso % (Auto) 0.2 Neut # (Auto) 17.9 H Lymph # (Auto) 1.6 [place] # (Auto) 2.7 H Eos # (Auto) 0.2 Baso # (Auto) 0.0 WBC Differential . Diff Scan Auto diff confirmed Differential Comment . Dohle Bodies Present H Platelet Estimate Normal Platelet Morphology Normal Polychromasia 2.0 H Basophilic Stippling Faint H Lab - Chemistry Results 02/02/18 02:43 Sodium 147 H Potassium 3.6 Chloride 106 Carbon Dioxide 37.7 H Anion Gap 3 L BUN 18 Creatinine 0.58 L Estimated GFR Greater than 89 Random Glucose 111 H Calcium 7.8 L Total Bilirubin 2.2 H AST 22 ALT 30 Alkaline Phosphatase 81 Total Protein 5.8 L Albumin 1.6 L Imaging: ITS Impressions Pelvis X-Ray 01/21/18 11:34 CONCLUSION: The bony pelvic ring appears grossly intact. Abdomen/Pelvis CT 01/21/18 11:36 CONCLUSION: No acute traumatic injury in the abdomen or pelvis. Cervical Spine CT 01/21/18 11:36 CONCLUSION: 1. No evidence of fracture or spondylolisthesis. 2. Multilevel advanced degenerative changes with neural foraminal stenosis as described above. 3. Prominent deep soft tissue emphysema stable from the right chest into the right neck. Head CT 01/21/18 11:36 CONCLUSION: No acute intracranial injury . Lumbar Spine CT 01/21/18 11:38 CONCLUSION: 1. Advanced degenerative changes throughout the lumbar spine. No acute fracture seen. 2. The patient is post laminectomy at L3 and L4. 3. No enhancing lesion identified. 4. Note is made of pleural effusion on the right side. Note is made of subcutaneous emphysema along the back and right chest Thoracic Spine CT 01/21/18 11:38 CONCLUSION: 1. No fractures of the thoracic vertebral bodies. 2. Multiple fractures of the medial right fifth through eighth ribs, several which involve the costovertebral joint. Chest CT 01/29/18 08:22 CONCLUSION: 1. Severe dense airspace consolidation and volume loss involving the right lower lobe with areas of cavitation. This appearance is similar to the most recent study from 4 days ago. 2. Mild consolidation in the left lower lobe but overall improved aeration of the left lower lobe. 3. Trace bilateral pleural fluid. Large bore right chest tube remains present posteriorly. 4. There are secretions in the dependent aspect of the trachea indicating aspiration. 5. Multiple displaced right rib fractures are again identified involving the fourth through ninth ribs. Displaced right scapular fracture is also again identified. Chest X-Ray 02/03/18 00:00 CONCLUSION: 1. Right greater than left basilar consolidation and pleural effusions not significantly changed. 2. Right chest tube removed. No pneumothorax. Right rib fractures are again seen. Physical Exam: GENERAL: NAD SKIN: Warm and dry. no rash HEAD: Atraumatic. Normocephalic. EYES: Pupils equal and round. No scleral icterus. No injection or drainage. ENT: No nasal bleeding or discharge. Mucous membranes pink and moist. NECK: Trachea midline. No JVD. CARDIOVASCULAR: Regular rate and rhythm. RESPIRATORY: No accessory muscle use. Few rhocnhi to auscultation. Breath sounds equal bilaterally. GASTROINTESTINAL: Abdomen soft, non-tender, nondistended. Hepatic and splenic margins not palpable. MUSCULOSKELETAL: Extremities without clubbing, cyanosis, or edema. No obvious deformities. NEUROLOGICAL: Awake and alert. No obvious cranial nerve deficits. Motor grossly within normal limits. Five out of 5 muscle strength in the arms and legs. Normal speech. PSYCHIATRIC: Appropriate mood and affect; insight and judgment normal. Assessment and Plan - Plan Pulmonary contusions PNA, Proteus briceno S Pneumohemothorax sp R chest tube placement - removed Leukocytosis - improved cont Amp/S Transitio to po Augmentine when close to discharge If worsening clincially will expand gram negative coverage prior to availbaility of ID/S will re- image at some point rik RN rik dgtr @ b/s
[2018-02-04] MEDS: Ampicillin/Sulbactam Inj 3 GM in Sodium Chloride 0.9% Inj 100 ML IV.SIG SCH ×3 (01:55→14:25)
[2018-02-04] MEDS: Methocarbamol 500 MG Tablet PO SCH ×2 (04:38→14:31)
[2018-02-04] MEDS: Senna/Docusate Sodium 8.6/50 MG Tablet PO SCH (08:10)
[2018-02-04] MEDS: buPROPion 150 MG 12 HR Tablet PO SCH (08:28)
[2018-02-04] MEDS: Enoxaparin Inj 40 MG/0.4 ML Syringe SQ SCH (11:35)
--- NOTE | 2018-02-04 13:07 | P.PNCC ---
Subjective Brief History: 67-year-old male INTERMEDIATE severe blunt chest trauma with hemopneumothorax- hemorrhagic shock 24 Hour Review/Hospital Course: 01/22 She required 4 units of RBC, 2 units of FFP for resuscitation blood pressure to normal level Chest tube put out 1600/cc-most of the output is initial-his output has been 150 cc overnight He is hemodynamically normal in the morning he is sedated with propofol and fentanyl Vent settings are 40% FiO2 and 5 of PEEP-saturations are satisfactory level Chest x-ray shows minimal pleural effusion Urine output is within normal limits 01/23 Patient is doing well Chest tube output 700 cc the last 24 hours Chest x-ray only small hemothorax, chest tube output is clearing up pF ratio more than 200 Output is adequate patient is hemodynamically normal tolerated the switch to propofol He has been started on tube feeds and is tolerating them well 01/24/2018 Patient remains sedated on propofol however with somewhat decrease in the arterial blood pressure so we will switch patient to Versed. Response to verbal stimuli follows very simple commands Hemodynamically patient is relatively stable however as noted above seems to be dropping pressure with propofol Once switched to Versed, will decide which way to go with the patient needs some additional fluids or other measures Bilateral breath sounds Improved aeration of both lungs and improved PO2 FiO2 gradient due to VQ mismatch reduction and improvement in the right lung Chest tube drainage about 230 cc over 24 hours serosanguineous material Abdomen soft Plan CT scan of the chest today to assess for any residual hemothorax on the right side Modified sedation We will gradually wean patient down and see how he does in next few days as far as extubation is concerned 01/25/2018 Patient is improving every day slightly Sedated on propofol and fentanyl and due to good PO2 FiO2 gradient will start weaning Propofol on hold fentanyl small dose continued Hemodynamically stable Repeat CT of the chest reveals bilateral basilar atelectasis however patient does not have significant hemothorax that would require any further drainage and this is going to resolve on its own Bilateral breath sounds on AC mode ventilation with improving PO2 FiO2 gradient We will start placing patient on CPAP trials Gentle diuresis Patient will be weaned as tolerated and he should probably come off the ventilator by Wednesday or Wednesday depending on recovery of neurologic cognitive function as well as right chest respiratory dynamics There is a small chance patient might need a tracheostomy but I do not think he will 01/26/2018 Patient neurologically improved since yesterday With removal of propofol and decreasing fentanyl patient is fully awake and alert Following commands oriented in time and space trying to write Hemodynamically stable Bilateral breath sounds good inspiratory effort no air leak in the chest tube and drainage is serosanguineous and significantly decreased We will place chest tube on waterseal Patient passed CPAP trials and will be extubated this morning Out of bed Will start on a diet after bedside swallow 01/27/2018 Patient doing very well at this time successfully extubated yesterday Awake alert and oriented following commands neurologically intact although weak [place] Coma Scale 15 Hemodynamically stable Bilateral breath sounds decreased over the both lung marquez bases but patient taking good breaths and coughing up Chest the drain is still around 300 cc over 24 hours of serosanguineous material and this is consistent with inflammation of the right chest both visceral and parietal pleura so will leave the chest tube in for another day Past swallow test today and will be started on mechanical diet and switched to p.o. medications Transfer to floor and as soon as available rehab 01/28/2018 Patient was doing very well in the floor yesterday but then apparently desaturated this morning slightly and ABGs reveal slight hypercapnia. Based on the judgment of the [facility] trauma surgeon patient was transferred back to ICU for some closer observation and care Patient is awake alert and oriented somewhat somnolent at times Hemodynamically stable Bilateral breath sounds decreased over the both bases right more than left consistent with the consolidation of the right lower lobe I do not see any increase in fluid however patient clearly is still draining about 300 cc per 24 hours of serosanguineous fluid from the chest tube which is consistent with inflammation of the parietal and visceral pleura No air leak We will keep patient in ICU for a day or 2 work with him aggressively and respiratory parameters and see how he does 01/29/2018 Neurologic patient is fully intact Taken back to the ICU from the floor because of the questionable difficulty breathing Bilateral breath sounds some rhonchi over the right lung field consistent with a previous pulmonary injury however patient is taking deep breaths and saturating well Improving PO2 FiO2 gradient with aggressive respiratory therapy Repeat CT scan of the chest tomorrow to see if patient has large and loculated pleural effusion or perhaps a posterior hemothorax. At least he will have fairly significant bibasilar infiltrates and I may take patient to the [facility] lab for bronchoscopy and washout In the worse case scenario patient will need a thoracoscopy should he have an loculated posterior hemothorax Abdomen is soft patient is tolerating diet well 01/30/2018 Patient is awake and alert and finally had one night of sleep Hemodynamically stable Bilateral breath sounds very decreased over the both lung bases with some rhonchi and dull on percussion Chest tube drainage about 300 cc of serous fluid over last 24 hours which is clearly inflammatory as a result of trauma Respiratory patient had deteriorated over the last few days and was retaining CO2 with poor PO2 FiO2 gradient Placed on BiPAP mask yesterday afternoon, on which she is doing much better Saturation 99% We will try a nasal cannula and diet today CT of the chest reveals very little fluid however patient does have complete consolidation of the right lower lobe and this is combination of severe lung trauma, combined with inspissated secretions and inability to expand this area Will take patient tomorrow to bronchoscopy lab to clean out the respiratory tree 01/31/2018 Patient awake alert and oriented Consolidation of the right lung superimposed on underlying injury is causing significant VQ mismatch and hypoxia in face of underlying COPD and a long smoking history. Altogether patient is desaturating very easily Hypercapnic and hypoxic with poor PO2 FiO2 gradient. Underwent successful bronchoscopy today with evacuation of massive amounts of secretions from the right lung We will place on high flow oxygen at this time and see how patient does then gradually wean down 02/01/2018 Patient is awake alert and oriented Hemodynamically stable Had successful bronchoscopy yesterday with evacuation of large amounts of secretions from the right mainstem and the operations of the right lower and middle lobe Bilateral good breath sounds decreased over the right lung base consistent with the previous contusion and some atelectasis that remains White count 27,000 today which is certainly spike from yesterday which could be due to the bronchoscopy and stirring up of everything patient was placed on IV antibiotics including Vanco and Zosyn and infectious disease was consulted PO2 FiO2 gradient is definitely improved at this time patient is now nasal cannula doing fairly well Abdomen soft active bowel sounds diet tolerated 02/02/2018 Patient awake alert oriented Neurologically fully intact Tolerating diet well Bilateral breath sounds decreased over the right base Coughing up purulent appearing thick sputum mixed in with blood which is consistent with a right lower lobe injury PO2 FiO2 gradient is slowly improving and patient is doing well on the 30 L/40% high flow nasal cannula We will gradually decrease FiO2 and the flow rate and patient can transfer to rehab any time [facility] will accept the patient as soon as approved Patient is not very compliant with care and does not like to get out of bed Abdomen soft 02/03 improving gradually spo2 93-94% on high flow o2 ID managing abx-WBC still 20 range decreasing in tendency tolerating diet OOB /PT Last CT 01/29 patient had bronchoscopy 02/04 Clinically stable Oxygen saturation in the low 90s ID continues to manage antibiotic She is tolerating his regular diet He is working with his I-S, moderate effort Objective Vital Signs / I&O: Vital Signs 02/03/18 14:00 02/03/18 16:00 02/03/18 16:08 Temperature 98.3 F Pulse Rate 99 H 108 H 95 H Respiratory Rate 25 H 20 Blood Pressure 131/67 Pulse Oximetry 95 02/03/18 18:00 02/03/18 20:00 02/03/18 20:55 Temperature 98.3 F Pulse Rate 93 H 70 81 Respiratory Rate 21 20 Blood Pressure 130/58 L Pulse Oximetry 95 02/03/18 20:56 02/03/18 22:00 02/04/18 00:00 Temperature 98.3 F Pulse Rate 69 72 Respiratory Rate 20 Blood Pressure 114/59 L Pulse Oximetry 94 L 91 L 02/04/18 00:43 02/04/18 02:00 02/04/18 04:00 Temperature 98.1 F Pulse Rate 73 78 Respiratory Rate 27 H Blood Pressure 140/65 Pulse Oximetry 96 93 L 02/04/18 04:14 02/04/18 06:00 02/04/18 08:00 Temperature 100 F H Pulse Rate 66 78 69 Respiratory Rate 20 19 Blood Pressure 137/65 Pulse Oximetry 94 L 93 L 02/04/18 09:20 02/04/18 09:37 02/04/18 10:00 Temperature Pulse Rate 84 Respiratory Rate 16 Blood Pressure Pulse Oximetry 95 02/04/18 10:20 02/04/18 12:00 Temperature 98.8 F Pulse Rate 77 85 Respiratory Rate 20 20 Blood Pressure 150/72 H Pulse Oximetry 100 100 Intake & Output 02/03/18 02/04/18 02/04/18 18:59 06:59 18:59 Intake Total 800 / 800 800 / 800 100 / 100 Output Total 650 / 650 750 / 750 Balance 150 / 150 50 / 50 100 / 100 Weight 111.9 kg Intake: IV 200 / 200 200 / 200 100 / 100 Unasyn Inj 3 GM In NS Inj 100 200 / 200 200 / 200 100 / 100 ML @ 200 mls/hr IV.SIG Q6H ÁNGELA Rx#:[id number] Oral 600 / 600 600 / 600 Output: Urine Amount (Catheter) 650 / 650 750 / 750 Condom 650 / 650 750 / 750 Other: Date of Last Bowel Movement 02/02/18 02/02/18 02/04/18 Result Diagrams: 02/02/18 02:43 02/02/18 02:43 Disinhibition Score: 14.00 Aggression Score: 14.00 Lability Score: 14.00 Agitated Behavior Total Score: 14 - 

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
== END 2018-02-04 17:53 ==
LOC: NEPI 11:33 → N03 12:30 → N06 01-27 18:27 → N03 01-28 11:28
PROVIDERS: ADMIT Surgery; ATTEND Surgery